=== PATIENT | female | born 1950 | race Caucasian/White ===

== ENCOUNTER → 2023-07-31 10:52 | Outpatient (REF) | payer MEDICARE, BC, SELFPAY | LOC: RAD 10:52 | PROVIDERS: ATTENDING PHYSICIAN Emergency Medicine; FAMILY PHYSICIAN Internal Medicine | DX: S93.491A Sprain of other ligament of right ankle, initial encounter (principal) | CPT/HCPCS: 73610 ==

== ENCOUNTER 2023-08-25 09:26 | Emergency (ER) | payer MEDICARE, BC, SELFPAY ==
[2023-08-25 09:28] VITALS: BP 136/105
--- NOTE | 2023-08-25 10:51 | ED.GENMED ---
History of Present Illness
General
Chief Complaint: Skin Surface Trauma
Source: patient
Time Seen by Provider: 08/25/23 10:17
Travel History
Have you had any contact with someone who has COVID-19?: No
Do you have any symptoms of coronavirus? Fever > 100 degrees, chills, cough, shortness of breath, sore throat, loss of taste or smell, muscle aches, or headache?: No
History of Present Illness
History of Present Illness:
73-year-old female with past medical history of migraines, hyperlipidemia, GERD presenting the emergency department for evaluation after she excellently cut her left knee while taking out the garbage. Patient states she is ultimately not sure as to
what may have cut her but believes it may have been a broken piece of glass. Laceration measured approximately 2 cm in size, just proximal to the patella, bleeding controlled with bandages. No other injuries were sustained. Patient is ultimately
unsure on her tetanus status.
Past History
Past History
ED Past Medical History: GERD, Hypercholesterolemia and Other (Migraines)
ED Past Surgical History: Appendectomy, Orthopedic and Tonsilectomy
Social History
Tobacco: Non-smoker
Alcohol: None
Drug: None
Personal:
Living: with family
Employment: Employed
Family History
Family History: Other (Noncontributory)
Review of Systems
Review of Systems
All Other Systems: ROS reviewed and negative except as documented in HPI and ROS
Phy Exam
Physical Exam
Physical Exam:
GENERAL: Alert , in no apparent distress
EYE: conjunctiva clear
Head: Normocephalic atraumatic
NECK: Supple,
ENT: mmm.
LUNGS: no acute respiratory distress
NEUROLOGICAL: Alert and oriented
SKIN: Warm and dry, 2 cm horizontally oriented laceration just proximal to the left patella. Bleeding well-controlled with bandages. Patient allows for full range of motion. No other injuries noted
MUSCULOSKELETAL: well perfused.
PSYCH: Normal and appropriate interaction.
Scores
Heart Failure Risk
Heart Failure Risk Score: Not Applicable
Heart Score for Chest Pain Patients
STEMI patient?: Not applicable
Withdrawal Assessment of Alcohol
Withdrawal Assessment Completed?: Not applicable
Course
Orders/Labs/Results
Orders:
Orders
08/25/23 10:50
Tetanus/Diphth/Acelpertussis [Adacel] 0.5 ml IM .ONCE ONE
Vital Signs
Initial and Last Documented VS:
Initial Vital Signs
Temp Pulse Resp BP Pulse Ox
98.6 F 70 18 136/105 98
08/25/23 09:28 08/25/23 09:28 08/25/23 09:28 08/25/23 09:28 08/25/23 09:28
Last Documented Vital Signs
Temp Pulse Resp BP Pulse Ox
98.6 F 70 18 136/105 98
08/25/23 09:28 08/25/23 09:28 08/25/23 09:28 08/25/23 09:28 08/25/23 09:28
Procedures
Laceration Closure
Left Anterior Knee:
Status of Wound: clean
Size of Wound in cm: 2
Description of Wound Edges: sharp
Preparation: cleaned with saline
Anesthesia: 1% Lidocaine
Revision/Debridement: routine- no revision
Type of Closure: single layer closure
Skin Closure Material: 4-0 nylon
Number of sutures: 6
MDM/Problems Addressed
MDM/Problems Addressed:
73-year-old female presenting emergency department following laceration to the left knee. Repaired as above without any complications and good hemostasis. Tetanus vaccine was updated. Patient had dressing placed over top. Suture removal 10 to 12
days. She will follow-up with primary care provider. Aware of return precautions and department.
*Pulse Oximetry
Patient hypoxic: no
*Critical Care Note
Total Time (30-74mins, 75-104mins- exclusive of procedures): Not Applicable
ED Attending Note
-
Portions of this chart may have been created with voice recognition software.� Occasional wrong word or��sound alike� substitutions may have occurred due to the inherent limitations of voice recognition software.
Discharge Plan
Departure
Patient Disposition: Home (Routine Discharge)
Date of Disposition: 08/25/23
Time of Disposition: 10:51
Patient with high blood pressure during this ER visit?: Yes
Discharge Problem:
Laceration of knee, left
Instructions: Laceration Repair With Stitches (DC)
Prescriptions:
No Action
atorvastatin 10 MG tablet
10 mg PO DAILY
loratadine 10 MG tablet
10 mg PO DAILYPRN PRN (Reason: allergies)
famotidine 20 MG tablet
20 mg PO BID
mupirocin 1 APPLIC ointment
1 applic intranasal BID Qty: 1 0RF
Patient Comments:
patient applied this am 01/13/19 . patient has been applying bid since 01/10/19 in the am
celecoxib 200 MG capsule
200 mg PO DAILY Qty: 30 3RF
Rx Instructions:
take with food
do not take within 2hours of asa-blocks absorption
sennosides [senna] 1 TABLET tablet
2 tab PO BID 0RF
acetaminophen 325 MG tablet
650 mg PO QID 0RF
magnesium hydroxide 30 ML suspension
30 ml PO DAILYPRN PRN (Reason: constipation) 0RF
aspirin 325 MG tablet,delayed release (DR/EC)
325 mg PO DAILY 0RF
Rx Instructions:
with food
docusate sodium 100 MG capsule
100 mg PO BID 0RF
oxycodone 5 MG tablet
5 mg PO Q4HPRN PRN (Reason: moderate-severe pain) Qty: 35 0RF
Rx Instructions:
1 tab moderate pain or 2 if pain severe
dx TKA
ongoing therapy
ondansetron HCl 4 MG tablet
4 mg PO Q6HPRN PRN (Reason: n/v) Qty: 1 0RF
Rx Instructions:
take 1/2 hour before oxycodone if recurrent nausea
Referrals:
Servando Mark MD [Family Provider] -
Activity Restrictions/Additional Instructions:
Suture removal in 10-12 days
Interventions
Interventions:
*Risk Screen - Suicide Last Done: 08/25/23 10:05
*General Assessment Last Done: 08/25/23 10:05
*Neglect/Abuse Screening Last Done: 08/25/23 10:05
*ED COVID-19 Vaccine History Last Done: 08/25/23 09:30
ED-Skin Assessment Last Done: 08/25/23 10:05
Discharge Date and Time
Print Language: NIGERIAN
[2023-08-25] MEDS: ADACEL 0.5 ML IM (10:58)
== END 2023-08-25 11:10 | disposition home or self-care (01) ==
LOC: EMR 09:26
PROVIDERS: EMERGENCY PHYSICIAN Emergency Medicine; FAMILY PHYSICIAN Internal Medicine
DX: S81.012A Laceration without foreign body, left knee, initial encounter (principal); W45.8XXA Other foreign body or object entering through skin, initial encounter; Z23 Encounter for immunization; K21.9 Gastro-esophageal reflux disease without esophagitis; E78.00 Pure hypercholesterolemia, unspecified; Z90.49 Acquired absence of other specified parts of digestive tract
CPT/HCPCS: 99282; 12001; 90471; 90715

== ENCOUNTER → 2023-08-28 07:43 | Outpatient (REF) | payer MEDICARE, BC, SELFPAY ==
[2023-08-28 10:21] LABS: % Basophils 0.5 % (0-2); % Immature Granulocytes 0.3 % (0-0.5); % Lymphocytes 22.2 % (20.5-51.1); % Monocytes 10.6 % (1.7-9.3); % Neutrophils 65.4 % (42.2-75.2); Absolute Eosinophils 0.1 10^3/uL (0-0.7); Absolute Lymphocytes 1.4 10^3/uL (1.2-3.4); Absolute Monocytes 0.7 10^3/uL (0.1-0.6); Absolute Neutrophils 4.1 10^3/uL (1.4-6.5); Hematocrit 39.6 % (37.0-47.0); Hemoglobin 13.4 g/dL (12.0-16.0); Mean Corp Hgb Conc. 33.8 g/dL (33.0-37.0); Mean Corpuscular Hgb 31.1 pg (27.0-31.0); Mean Corpuscular Volume 91.9 fL (81.0-99.0); Mean Platelet Volume 11.2 fL (7.4-10.4); Nucleated Red Blood Cells % 0 %; Platelet Count 275 10^3/uL (130-400); Red Blood Cell Count 4.31 10^6/uL (4.20-5.40); White Blood Cell Count 6.3 10^3/uL (4.8-10.8)
[2023-08-28 11:02] LABS: ALT (SGPT) 13 U/L (0-35); AST (SGOT) 19 U/L (14-36); Albumin 4.3 g/dl (3.5-5.0); Alkaline Phosphatase 72 U/L (38-126); Blood Urea Nitrogen 17 mg/dl (7-17); Calcium 9.8 mg/dl (8.4-10.2); Carbon Dioxide 28 mmol/L (22-30); Chloride 100 mmol/L (98-107); Glucose 99 mg/dl (70-99); HDL Cholesterol 97 mg/dl; LDL Cholesterol, Calculated 63 mg/dl; Potassium 4.5 mmol/L (3.5-5.1); Sodium 136 mmol/L (135-145); Total Bilirubin 0.5 mg/dl (0.2-1.3); Total Cholesterol 176 mg/dl (50-199); Total Protein 6.5 g/dl (6.3-8.2); Triglyceride 82 mg/dl (10-149); Very Low Density Lipoprotein 16 mg/dl (0-30); eGFR > 60.00
== END ==
LOC: HWWDC 07:43
PROVIDERS: ATTENDING PHYSICIAN Obstetrics & Gynecology Gynecology; FAMILY PHYSICIAN Physician Assistant
DX: Z12.31 Encounter for screening mammogram for malignant neoplasm of breast (principal); M25.511 Pain in right shoulder; G47.00 Insomnia, unspecified; F34.1 Dysthymic disorder; E66.3 Overweight
CPT/HCPCS: 36415; 77063; 77067; 80053; 80061; 84443; 85025

== ENCOUNTER → 2023-11-01 06:32 | Day surgery (SDC) | payer MEDICARE, BC, SELFPAY | LOC: GI 06:32 | PROVIDERS: ATTENDING PHYSICIAN Internal Medicine Gastroenterology | DX: Z12.11 Encounter for screening for malignant neoplasm of colon (principal); D12.0 Benign neoplasm of cecum; K57.30 Diverticulosis of large intestine without perforation or abscess without bleeding; K64.8 Other hemorrhoids | CPT/HCPCS: 45380; 88305 ==

== ENCOUNTER → 2024-03-16 09:02 | Outpatient (REF) | payer MEDICARE, BC, SELFPAY | LOC: MRI 3T 09:02 | PROVIDERS: ATTENDING PHYSICIAN Physician Assistant Surgical; FAMILY PHYSICIAN Physician Assistant | DX: S46.012A Strain of muscle(s) and tendon(s) of the rotator cuff of left shoulder, initial encounter (principal); M25.512 Pain in left shoulder | CPT/HCPCS: 73221 ==

== ENCOUNTER → 2024-11-29 12:48 | Outpatient (REF) | payer MEDICARE, BC, SELFPAY | LOC: MRI 3T 12:48 | PROVIDERS: ATTENDING PHYSICIAN Physician Assistant Surgical; FAMILY PHYSICIAN Physician Assistant | DX: M25.512 Pain in left shoulder (principal) | CPT/HCPCS: 73221 ==

== ENCOUNTER → 2024-12-09 08:00 | Outpatient (REF) | payer MEDICARE, BC, SELFPAY | LOC: HWRAD 08:00 | PROVIDERS: ATTENDING PHYSICIAN Physician Assistant Surgical; FAMILY PHYSICIAN Physician Assistant | DX: M12.812 Other specific arthropathies, not elsewhere classified, left shoulder (principal) | CPT/HCPCS: 73200 ==

== ENCOUNTER → 2024-12-18 06:42 | Outpatient (REF) | payer MEDICARE, BC, SELFPAY ==
[2024-12-18 08:21] LABS: Hematocrit 39.7 % (37.0-47.0); Hemoglobin 13.1 g/dL (12.0-16.0); Mean Corp Hgb Conc. 33.0 g/dL (33.0-37.0); Mean Corpuscular Volume 95.7 fL (81.0-99.0); Nucleated Red Blood Cells % 0 %; Platelet Count 237 10^3/uL (130-400); Red Cell Dist. Width 12.7 % (11.5-14.5)
[2024-12-18 09:04] LABS: Blood Urea Nitrogen 15 mg/dl (7-17); Calcium 9.3 mg/dl (8.4-10.2); Carbon Dioxide 27 mmol/L (22-30); Chloride 107 mmol/L (98-107); Glucose 98 mg/dl (70-99); Potassium 4.9 mmol/L (3.5-5.1); Sodium 139 mmol/L (135-145); eGFR > 60.00
== END ==
LOC: REG 06:42
PROVIDERS: ATTENDING PHYSICIAN Specialist; FAMILY PHYSICIAN Physician Assistant
DX: Z01.818 Encounter for other preprocedural examination (principal)
CPT/HCPCS: 36415; 80048; 85025

== ENCOUNTER 2025-01-03 15:28 | Inpatient (IN) | payer MEDICARE, BC, SELFPAY ==
[2025-01-03] VITALS (11 sets, daily range): BP systolic 59–137; BP diastolic 26–86; BMI 25.5; BMI 26.0
--- NOTE | 2025-01-03 12:07 | ED.GENMED ---
History of Present Illness
General
Chief Complaint: Fall
Source: patient and ambulance crew
Exam Limitations: none
Time Seen by Provider: 01/03/25 12:04
Nursing documentation reviewed up to this point in time: agreed with
History of Present Illness
History of Present Illness:
Note:
CHIEF COMPLAINT(S)
Numbness and pain in the left leg and decreased feeling in the foot.
HISTORY OF PRESENT ILLNESS
The patient is a 74-year-old female with a history of a knee replacement performed by Dr. Turpin. She reports experiencing significant numbness and pain in her left leg, particularly on the inside part, which has been present since she first fell
to the ground. She states, 'The inside part of the leg is what really hurts,' and describes it as almost like a burning sensation. She reports decreased movement in the foot and increased numbness, stating, 'I dont have a lot of feeling in my foot.'
The patients left shoulder is scheduled for a reverse total shoulder replacement by Dr. Santana on January 20 due to an attached and retracting rotator cuff. The right rotator cuff was repaired approximately four to five years ago.
PHYSICAL EXAM
General: Alert, cooperative, and oriented.
Skin: Warm, dry. abrasion forehead
Head: Normocephalic, atraumatic; bruises present on the head.
Neck: Supple, trachea midline. no cspine tenderness
Eye, Ears, Nose, Mouth, and Throat: Oral mucosa moist.
Cardiovascular: Normal peripheral perfusion, no edema.
Respiratory: Respirations are non-labored.
Gastrointestinal: Abdomen nondistended.
Back: Normal range of motion, normal alignment.
Musculoskeletal: Decreased sensation and movement in left foot. left knee swelling, deformity Right shoulder appears dislocated anterioly
Neurological: Alert and oriented to person, place, time, and situation; reports numbness and burning sensation in the left leg.
Psychiatric: Cooperative, appropriate mood and affect.
PROBLEM LIST
Acute Problems:
1. Numbness and pain in the left leg
2. Decreased sensation in the left foot
3. Right shoulder dislocation
PLAN
- A computed tomography (CT) scan of the head will be performed to assess for any related head injuries.
- Evaluate the left leg for possible displacement or other trauma-related injuries.
- Monitor symptoms and consider further neurological assessment for persistent numbness.
DIFFERENTIAL DIAGNOSIS
The Differential Diagnosis includes, in no particular order and is not limited to:
1. Peripheral neuropathy
2. Radiculopathy
3. Deep vein thrombosis (DVT)
4. Compartment syndrome
5. Fracture or bone injury of the leg
6. Ligament or tendon injury
7. Spinal stenosis
8. Hematoma or contusion
9. Post-surgical complications
10. Vascular insufficiency
CARE-UPDATE
01/03/25 - 12:21
Patient exhibits difficulty finding pulses in the left foot; TT angiography of the left lower leg is ordered for further evaluation. Vascular surgery will review the imaging results to determine the next steps.
CARE-UPDATE
01/03/25 - 14:19
CT angiography and x-ray confirm right shoulder dislocation and papal artery injury. Consulted with Dr. Muniz; plan to reduce joints in OR. Anticipated vascular repair to be performed by [facility] surgery, including a likely femoral bypass.
Disposition:
SUMMARY OF ENCOUNTER
The patient, a 74-year-old female, was evaluated in the emergency department due to numbness and pain in her left leg, decreased feeling in the foot, and a confirmed right shoulder dislocation following a fall. She also has a history of left knee
replacement. The evaluation included a CT angiography and X-ray, which confirmed the right shoulder dislocation and a potential popliteal artery injury.
The patient exhibits difficulty finding pulses in the left foot. TT angiography of the left lower leg was ordered for further evaluation, and a vascular surgery consultation was initiated to review imaging results and determine the appropriate
intervention.
DISPOSITION
Admit to operating room for femoral-popliteal bypass and repair of shoulder and knee dislocations.
MANAGEMENT OF THE PATIENTS CARE WAS DISCUSSED WITH
Consultation with Dr. Muniz and vascular surgery was conducted to plan the reduction of the joints in the OR and anticipated vascular repair, including likely femoral bypass.
PLAN
Admit to the operating room for femoral-popliteal bypass surgery and repair of shoulder and knee dislocations to address vascular and orthopedic issues.
INDEPENDENT REVIEW OF LABS AND INTERPRETATION OF TESTS
- My independent interpretation of CT angiography indicates a popliteal artery injury, necessitating vascular repair.
- My independent review of X-ray confirms a right shoulder dislocation.
MEDICAL DECISION MAKING
- Number and Complexity of Problems Addressed: Chronic conditions affecting care include a history of left knee replacement, right rotator cuff repair, and current acute issues with left leg numbness and right shoulder dislocation. Differential
diagnosis includes peripheral neuropathy, radiculopathy, DVT, compartment syndrome, fracture or bone injury of the leg, ligament or tendon injury, spinal stenosis, hematoma or contusion, post-surgical complications, and vascular insufficiency.
- Data:
Category 1: The decision to order CT angiography and X-ray to assess for vascular injury and confirmation of shoulder dislocation.
Category 3: Discussed management and surgical planning with Dr. Muniz and vascular surgery team.
-Risk:
Procedures with associated risks include planned femoral-popliteal bypass surgery and the surgical reduction of dislocated joints. These interventions are necessary following the imaging findings of potential vascular compromise and confirmed
dislocation.
DIAGNOSIS
1. Right shoulder dislocation (ICD-10: S43.004A)
2. Popliteal artery injury (ICD-10: S75.02XA)
3. Numbness and pain in the left leg (ICD-10: R52.10)
4. History of left knee replacement (ICD-10: Z96.651)
5. left knee dislocation
Past History
Past History
ED Past Medical History: GERD, Hypercholesterolemia and Other (Migraines)
ED Past Surgical History: Appendectomy, Orthopedic and Tonsilectomy
Social History
Tobacco: Non-smoker
Alcohol: None
Drug: None
Personal:
Living: with family
Employment: Employed
Family History
Family History: Other (Noncontributory)
Phy Exam
Physical Exam
Physical Exam:
.
Course
Orders/Labs/Results
Orders:
Orders
01/03/25 12:04
CT Angio Lower Ext W/Wo Iv Contrast [CT Lower Ext Angio W/wo Iv Con] Urgent
Comment: do not wait for labs
Reason For Exam: left knee possible dislocation, weak pulse
CT Head W/o Iv Contrast Urgent
Comment:
Reason For Exam: fall, hit head
Cardiac Monitoring- Treatment ONCE
Knee, Left 4 or More Views [CR Knee - Left 4 Or More View*] Urgent
Comment:
Reason For Exam: fall, left knee pain
Pelvis, 1 or 2 Views CR [CR Pelvis - 1 Or 2 Views ] Urgent
Comment:
Reason For Exam: fall
Shoulder, Right 2 Views [CR Shoulder - Right Min 2 View] Urgent
Comment:
Reason For Exam: right shoulder dislocation
01/03/25 12:13
HYDROmorphone [Dilaudid] 1 mg IV NOW STA
Ondansetron Injectable [Zofran] 4 mg IV NOW STA
01/03/25 13:30
Type+Screen Urgent
Complete Blood Count/With Diff Urgent
Comprehensive Metabolic Panel Urgent
Heparin 5,900 units IV NOW STA
Heparin 32524 Units/250 ml 25,000 units in 250 ml IV PER PROTOCOL
Weight to be used for heparin protocol in kilograms (kg):: 73.7
Protocol:: Vascular Surgery
PTT Goal Range to be used:: PTT 73 to 111 seconds
Order type:: Initial
INITIAL Infusion Dose (UNITS/KG/hr) & then follow protocol:: 18 units/kg/hr
Infusion Dose in UNITS/hr & then follow protocol (UNITS/hr):: 1,300
INFUSION RATE in mL/hr & then follow protocol (mL/hr):: 13
PTT less than or equal to 64 seconds:: Notify Ordering Provider. obtain orders for rate increase &
possible bolus
PTT 64.1 to 72.9 seconds:: Increase rate by 100 units/hr (+ 1 mL/hr)
PTT 73 to 111 seconds:: Target Range. No change in rate.
PTT 111.1 to 130.9 seconds:: Decrease rate by 100 units/hr (- 1 mL/hr)
PTT 131 to 199.9 seconds:: HOLD for 1 hour. Then decrease rate by 200 units/hr (- 2 mL/hr)
PTT greater than or equal to 200 seconds:: STOP INFUSION. Notify Ordering provider to obtain further orders.
Lab follow-up:: Each change, PTT q6h until 2 consecutive are therapeutic. Then PTT
daily.
Pharmacy Request to Place See Dose Instructions PO NOW STA
Discontinue all Active Warfarin orders?: Yes
01/03/25 13:[address] Non Medication Order As Directed
Physician Order: PTT 6 hours after initial start of Heparin infusion
01/03/25 13:38
Lidocaine 2% Mpf [Xylocaine Mpf 2%] 100 mg .ROUTE .STK-MED ONE
Ondansetron Injectable [Zofran] 4 mg .ROUTE .STK-MED ONE
Propofol [Diprivan] 20 ml .ROUTE .STK-MED
Rocuronium [place] [Rocuronium] 50 mg .ROUTE .STK-MED ONE
01/03/25 13:39
Fentanyl Citrate/Pf [Sublimaze] 100 mcg .ROUTE .STK-MED ONE
Midazolam HCl [Versed] 2 mg .ROUTE .STK-MED ONE
01/03/25 13:53
Heparin 5,000 units .ROUTE .STK-MED ONE
01/03/25 13:54
Fentanyl Citrate/Pf [Sublimaze] 25 mcg IV [id number] PRN
HYDROmorphone [Dilaudid] 0.25 mg IV PACU-Q5MPRN PRN
HYDROmorphone [Dilaudid] 0.5 mg IV PACU-Q5MPRN PRN
Ondansetron Injectable [Zofran] 4 mg IV PACU-ONCEPRN PRN
Prochlorperazine [Compazine] 5 mg IV PACU-ONCEPRN PRN
Thrombin Topical (Bovine) [Thrombin-Jmi 73824 Unit Vial] 20,000 units .ROUTE .STK-MED ONE
Notify MD As Directed
Notify physician if: for SDS patients with known or suspected sleep obstructive sleep apnea, monitor in the
PACU.
Notify MD for any apneic/desaturation episodes
O2 Therapy [RESP] Urgent
Titrate/Wean O2 to maintain O2 sat greater than (%): 92
Special Instructions: -Provide supplemental oxygen to achieve O2 sat of 92% or greater.
-After 15 min, may wean O2 and discontinue if patient is able to maintain O2 sat of 92%
or greater during recovery period.
If patient is a discharge home, without oxygen therapy, notify anestheiologist if
unable to maintain O2 SAT of 92% or greater on room air for MD clearance.
01/03/25 14:00
Normosol (Mult Electrolytes) [Normosol-R/Plasmalyte-A] 1,000 ml IV PER PROTOCOL
Pharmacy Request to Place See Dose Instructions IV DIRECTED
01/03/25 14:02
PTT Urgent
Comment: Obtain baseline before beginning heparin infusion if not already collected
01/03/25 14:03
Admit/Transfer Patient As Directed
Co-Sign Provider:
Level of Care: Inpatient admission
Assign to:: Telemetry
Physician / Group: [email or web address]
Diagnosis: dislocation of left knee/popliteal artery occlusion/dissection
Reason for Telemetry: Arrhythmia
Date to Stop Telemetry: 01/06/25
Time to Stop Telemetry: 11:00
Reason for Hospitalization: dislocation of left knee/popliteal artery occlusion/dissection
Expected length of stay greater than two midnights?: Yes
ELOS- Estimated Length of Stay in days: 2
I certify the patient meets the requirements for IP care: Yes
01/03/25 14:04
Code Status As Directed
Resuscitation Status: Full Code
Phenylephrine [Francisco-Synephrine] 10 mg .ROUTE .STK-MED ONE
PRN Pain Medication Management As Directed
May give lesser potent ordered pain med per pt: Yes
preference::
Protocol:: Medication orders for pain may be administered in a
manner that supports deferring to patient preference
when the pt is:
- Requesting an ordered lesser potent pain medication.
Least to most potent pain medications are defined
as: acetaminophen < NSAID < tramadol < opioids
(morphine, oxycodone, hydromorphone).
- Requesting a lesser dose of the same medication IF
ORDERED.
- Requesting a less intrusive route of administration
if both routes are prescribed by the provider (PO <
IV).
01/03/25 14:06
Ondansetron Injectable [Zofran] 4 mg IV NOW STA
01/03/25 14:08
Ondansetron Injectable [Zofran] 4 mg IV NOW STA
01/03/25 14:13
ABO [Blood Group&Type] Stat
01/06/25 11:00
DC Protocol for Telemetry ONCE
Abnormal Lab Results
01/03/25
13:30
WBC 18.6 H 10^3/uL
(4.8-10.8)
RBC 4.17 L 10^6/uL
(4.20-5.40)
MPV 10.8 H fL
(7.4-10.4)
Abs Immat Gran (auto) 0.1 H 10^3/uL
(0-0.05)
Absolute Neuts (auto) 15.2 H 10^3/uL
(1.4-6.5)
Absolute Monos (auto) 1.4 H 10^3/uL
(0.1-0.6)
Neutrophils % 81.7 H %
(42.2-75.2)
Lymphocytes % 9.8 L %
(20.5-51.1)
01/03/25 13:30
Vital Signs
Initial and Last Documented VS:
Initial Vital Signs
Temp Pulse Resp Pulse Ox
97.7 F 67 15 99
01/03/25 11:52 01/03/25 11:52 01/03/25 11:52 01/03/25 11:52
Last Documented Vital Signs
Temp Pulse Resp BP Pulse Ox
97.7 F 64 18 119/66 99
01/03/25 11:52 01/03/25 12:01 01/03/25 12:01 01/03/25 12:01 01/03/25 12:08
*Pulse Oximetry
SaO2: 99
Oxygen Mode of Delivery: Room air
Patient hypoxic: no
*Critical Care Note
Total Time (30-74mins, 75-104mins- exclusive of procedures): 35
comment:
Critical care statement: A total of 35 minutes of critical care time was provided for this patient. This includes management of unstable vital signs, evaluation of the patient at bedside, reviewing the patient's pertinent medical records, discussion
with consultants, review of old EKGs and review of pertinent medical records. This time with separate from time utilized to perform the aforementioned documented procedures
ED Attending Note
-
Portions of this chart may have been created with voice recognition software.� Occasional wrong word or��sound alike� substitutions may have occurred due to the inherent limitations of voice recognition software.
Discharge Plan
Departure
Patient Disposition: OR
Date of Disposition: 01/03/25
Time of Disposition: 13:32
Admit to: OR
Presentation/result/management discussed w/ accepting MD/DO: Hospitalist
Patient with high blood pressure during this ER visit?: No
Condition: Serious
Discharge Problem:
Closed dislocation of left knee, Dissection of left popliteal artery, Anterior dislocation of right shoulder, Abrasion of forehead
Prescriptions:
No Action
atorvastatin 10 MG tablet
10 mg PO DAILY
loratadine 10 MG tablet
10 mg PO DAILYPRN PRN (Reason: allergies)
famotidine 20 MG tablet
20 mg PO BID
mupirocin 1 APPLIC ointment
1 applic intranasal BID Qty: 1 0RF
Patient Comments:
patient applied this am 01/13/19 . patient has been applying bid since 01/10/19 in the am
celecoxib 200 MG capsule
200 mg PO DAILY Qty: 30 3RF
Rx Instructions:
take with food
do not take within 2hours of asa-blocks absorption
sennosides [senna] 1 TABLET tablet
2 tab PO BID 0RF
acetaminophen 325 MG tablet
650 mg PO QID 0RF
magnesium hydroxide 30 ML suspension
30 ml PO DAILYPRN PRN (Reason: constipation) 0RF
aspirin 325 MG tablet,delayed release (DR/EC)
325 mg PO DAILY 0RF
Rx Instructions:
with food
docusate sodium 100 MG capsule
100 mg PO BID 0RF
oxycodone 5 MG tablet
5 mg PO Q4HPRN PRN (Reason: moderate-severe pain) Qty: 35 0RF
Rx Instructions:
1 tab moderate pain or 2 if pain severe
dx TKA
ongoing therapy
ondansetron HCl 4 MG tablet
4 mg PO Q6HPRN PRN (Reason: n/v) Qty: 1 0RF
Rx Instructions:
take 1/2 hour before oxycodone if recurrent nausea
Referrals:
Krystle Jacob PA-C [Family Provider, Internal Medicine]
Interventions
Interventions:
*Risk Screen - Suicide Last Done: 01/03/25 12:03
*General Assessment Last Done: 01/03/25 12:03
*Neglect/Abuse Screening Last Done: 01/03/25 12:03
*ED COVID-19 Vaccine History Last Done: 01/03/25 12:07
ED- Neurological Assessment Last Done: 01/03/25 12:07
Discharge Date and Time
Print Language: GEORGIAN
[2025-01-03] MEDS: ZOFRAN 4 MG IV ×2 (12:16→14:08)
[2025-01-03] MEDS: DILAUDID 1 MG IV (12:16)
[2025-01-03 13:50] LABS: Hematocrit 37.4 % (37.0-47.0); Hemoglobin 12.9 g/dL (12.0-16.0); Mean Corp Hgb Conc. 34.5 g/dL (33.0-37.0); Mean Corpuscular Volume 89.7 fL (81.0-99.0); Nucleated Red Blood Cells % 0 %; Platelet Count 235 10^3/uL (130-400); Red Cell Dist. Width 12.4 % (11.5-14.5)
--- NOTE | 2025-01-03 14:08 | HPS.HSE ---
Family Physician
-
Family Physician: Krystle Jacob
Chief Complaint
-
fall
History of Present Illness
74-year-old female past medical history of osteoarthritis, presenting with fall today while she was outside. She states that her leg gave out and her left knee twisted and she fell on the ground hitting her head. She has a laceration on her
forehead. She has severe pain in her right shoulder. She has severe pain in her left knee.
She has nausea without vomiting.
Denies smoking or alcohol use.
Medical History
Past Medical History
Past Medical History: Reports Other (osteoarthritis,)
Past Surgical History: Reports Other (Appendectomy, Orthopedic and Tonsilectomy, right rotator cuff surgery, Achilles tendon surgery,)
Social History
Tobacco: Non-smoker
Alcohol: None
Drug: None
Family History
Family History: Not pertinent
Allergies / Home Medications
Allergies reflects when Allergies were last updated in [facility].
Home Medications with original date entered in [facility]
Allergy/Medication List:
Allergies
Allergy/AdvReac Type Severity Reaction Status Date / Time
Penicillins Allergy Anaphylaxis Verified 08/25/23 09:32
tetracycline Allergy itching Verified 08/25/23 09:32
and rash
seasonal Allergy stuffy nose Uncoded 08/25/23 09:32
Home Medications
atorvastatin 10 mg tablet 10 mg PO DAILY 10/12/14
loratadine 10 mg tablet 10 mg PO DAILYPRN PRN allergies 10/12/14
famotidine 20 mg tablet 20 mg PO BID 12/17/18
mupirocin 2 % topical ointment 1 applic intranasal BID #1 tube 01/02/19
acetaminophen 325 mg tablet 650 mg (2 x 325 mg) PO QID 01/14/19
aspirin 325 mg tablet,delayed release 325 mg PO DAILY 01/14/19
celecoxib 200 mg capsule 200 mg PO DAILY #30 caps 01/14/19
docusate sodium 100 mg capsule 100 mg PO BID 01/14/19
magnesium hydroxide 400 mg/5 mL oral suspension 30 ml PO DAILYPRN PRN constipation 01/14/19
ondansetron HCl 4 mg tablet 4 mg PO Q6HPRN PRN n/v #1 tab 01/14/19
oxycodone 5 mg tablet 5 mg PO Q4HPRN PRN moderate-severe pain #35 tabs 01/14/19
sennosides 8.6 mg tablet (senna) 2 tab PO BID 01/14/19
Review of Systems
-
History Source: Patient
A 12 point ROS was completed and negative except as noted: Yes
Constitutional: Reports No Symptoms
EENT: Reports No Symptoms
Respiratory: Reports No Symptoms
Cardiac: Reports No Symptoms
Abdomen/GI: Reports No Symptoms
: Reports No Symptoms
Musculoskeletal: Reports See HPI
Skin: Reports No Symptoms
Neurological: Reports No Symptoms
Endocrine: Reports No Symptoms
Hematologic/Lymphatic: Reports No Symptoms
Psych: Reports No Symptoms
Physical Exam
Vital Signs
Vital Signs
Temp Pulse Resp BP Pulse Ox
97.7 F 64 18 119/66 99
01/03/25 11:52 01/03/25 12:01 01/03/25 12:01 01/03/25 12:01 01/03/25 12:08
Physical Exam
General: Well Developed, Well Nourished and No Apparent Distress
HEENT: NormoCephalic, Moist mucous membranes and Atraumatic
Respiratory: Clear
Cardiac: S1/S2 and Regular Rhythm; No Murmur or Rub
GI: Soft, Non Tender, Non Distended and Normal Bowel Sounds; No Organomegaly
Rectal: Deferred by Provider
Musculoskeletal: No Clubbing, No Cyanosis and No Edema
Skin: No Rash
Neuro: Nonfocal/grossly intact
Laboratory Results
-
01/03/25 13:30
Data Reviewed
-
Lab Data: Labs Reviewed by me
Old Records: Reviewed
Impression/Plan
-
IMPRESSION:
PLAN:
# Dislocation of left total knee arthroplasty with complete occlusion of the popliteal artery with distal reconstitution/dissection
# Amatory dysfunction with mechanical fall
-As per CT angiogram of left lower extremity
-Heparin drip started
-Continue aspirin, statin
- Vascular to take to OR for possible bypass
- Ortho to reduce knee in OR
- Zofran, Dilaudid
- N.p.o.
- Pelvic x-ray negative
# Right shoulder anterior dislocation
- Ortho to reduce in OR
# Forehead laceration
- CT head shows no acute abnormality
History of right rotator cuff injury status post surgery in 2019
History of left rotator cuff injury managed conservatively
- Plan for shoulder replacement in the near future
Osteoarthritis
GERD
Hypercholesteremia
Migraine
Anxiety/depression
Full code
DVT prophylaxis�heparin drip
N.p.o.
[2025-01-03 14:18] LABS: ALT (SGPT) 19 U/L (0-35); AST (SGOT) 23 U/L (14-36); Albumin 4.2 g/dl (3.5-5.0); Alkaline Phosphatase 66 U/L (38-126); Blood Urea Nitrogen 16 mg/dl (7-17); Calcium 10.1 mg/dl (8.4-10.2); Carbon Dioxide 20 mmol/L (22-30); Chloride 106 mmol/L (98-107); Estimated Creatinine Clearance 82 ml/min; Glucose 150 mg/dl (70-99); Potassium 4.1 mmol/L (3.5-5.1); Sodium 134 mmol/L (135-145); Total Protein 6.0 g/dl (6.3-8.2); eGFR > 60.00
--- NOTE | 2025-01-03 14:32 | CON.VAS ---
Medical History
-
Chief Complaint: Numbness to LLE s/p Fall
History of Present Illness:
74F mechanical fall from standing p/w R arm disclocation and LLE pulseless cool leg with numbness. CTA shows posterior knee dislocation with no flow through popliteal artery behind the knee. Distal reconstitution present on delayed phase imaging.
Past Medical History
Past Medical History: Hypercholesterolemia
Past Surgical History: Appendectomy and Other (bilateral knee replacement )
Social History
Tobacco: Non-Smoker
Family History
Family History: Reviewed & Not Pertinent
Allergies / Home Medications
Allergy/AdvReac Type Severity Reaction Status Date / Time
Penicillins Allergy Anaphylaxis Verified 08/25/23 09:32
tetracycline Allergy itching Verified 08/25/23 09:32
and rash
seasonal Allergy stuffy nose Uncoded 08/25/23 09:32
�Medication �Instructions �Recorded �Confirmed �Type
atorvastatin 10 mg tablet 10 mg PO DAILY 10/12/14 01/13/19 History
loratadine 10 mg tablet 10 mg PO DAILYPRN PRN allergies 10/12/14 01/13/19 History
famotidine 20 mg tablet 20 mg PO BID 12/17/18 01/13/19 History
mupirocin 2 % topical ointment 1 applic intranasal BID #1 tube 01/02/19 Rx
acetaminophen 325 mg tablet 650 mg (2 x 325 mg) PO QID 01/14/19 Rx
aspirin 325 mg tablet,delayed 325 mg PO DAILY 01/14/19 Rx
release
celecoxib 200 mg capsule 200 mg PO DAILY #30 caps 01/14/19 Rx
docusate sodium 100 mg capsule 100 mg PO BID 01/14/19 Rx
magnesium hydroxide 400 mg/5 mL 30 ml PO DAILYPRN PRN constipation 01/14/19 Rx
oral suspension
ondansetron HCl 4 mg tablet 4 mg PO Q6HPRN PRN n/v #1 tab 01/14/19 Rx
oxycodone 5 mg tablet 5 mg PO Q4HPRN PRN moderate-severe 01/14/19 Rx
pain #35 tabs
sennosides 8.6 mg tablet (senna) 2 tab PO BID 01/14/19 Rx
Physical Exam
Vital Signs
Temp Pulse Resp BP Pulse Ox
97.7 F 64 18 119/66 99
01/03/25 11:52 01/03/25 12:01 01/03/25 12:01 01/03/25 12:01 01/03/25 12:08
Lab Results
01/03/25 13:30
01/03/25 13:30
Physical Exam
General: Well Developed, Well Nourished and No Apparent Distress
HEENT: Normocephalic
Respiratory: Clear
Cardiac: S1/S2
GI: Soft
Skin: Warm
Neuro: Awake and AO x 3
Psych: Calm
Pulses: Bilateral Femoral: +2, Left Dorsalis Pedis: Doppler (absent), Right Dorsalis Pedis: +2, Left Posterior Tibial: Doppler (absent ) and Right Posterior Tibial: +2
Assessment / Plan
-
74F p/w LLE posterior knee dislocation and cool pulseless leg. CTA shows possible pop intimal injury
-proceed to OR for reduction of knee dislocation
-may need LLE bypass if pulse does not return after reduction
--- NOTE | 2025-01-03 15:14 | W.PN.UPDATE ---
Update Note
Progress Note Update
Patient seen at bedside in vascular suite. Full consult note to follow. Patient with pulseless left limb, left knee dislocation and right shoulder dislocation. Risks, benefits, alternatives, recovery process and potential complications of closed
reduction right shoulder and left knee were discussed in detail. Patient verbalized understanding and surgical and blood consents signed.
--- NOTE | 2025-01-03 18:12 | CON.ORTHO ---
Consultation
-
Date/Time Consultation Requested: 01/03/2025; time unknown
Date/Time Consultation Performed: 01/03/2025
Requesting Provider: unknown
Performing Provider: Kristi Pulido PA-C / Dr. Santosh Muniz
Reason for Consultation: Right shoulder dislocation, Left knee dislocation
Consultation - Orthopedics
History
Ms. Summers is a 74 year old female with PMH of osteoarthritis, bilateral TKA seen today for her right shoulder and left knee. She was walking in the parking lot at the store when her leg gave out on her. This resulted in her falling, and she reports
her left knee twisted. She did hit her head during the fall. Upon presentation, she complained of severe left knee and right shoulder pain. Imaging revealed dislocations of both of these joints.
Allergies / Home Medications
Allergy/AdvReac Type Severity Reaction Status Date / Time
Penicillins Allergy Anaphylaxis Verified 08/25/23 09:32
tetracycline Allergy itching Verified 08/25/23 09:32
and rash
seasonal Allergy stuffy nose Uncoded 08/25/23 09:32
�Medication �Instructions �Recorded
atorvastatin 10 mg tablet 10 mg PO DAILY 10/12/14
loratadine 10 mg tablet 10 mg PO DAILYPRN PRN allergies 10/12/14
famotidine 20 mg tablet 20 mg PO BID 12/17/18
mupirocin 2 % topical ointment 1 applic intranasal BID #1 tube 01/02/19
acetaminophen 325 mg tablet 650 mg (2 x 325 mg) PO QID 01/14/19
aspirin 325 mg tablet,delayed 325 mg PO DAILY 01/14/19
release
celecoxib 200 mg capsule 200 mg PO DAILY #30 caps 01/14/19
docusate sodium 100 mg capsule 100 mg PO BID 01/14/19
magnesium hydroxide 400 mg/5 mL 30 ml PO DAILYPRN PRN constipation 01/14/19
oral suspension
ondansetron HCl 4 mg tablet 4 mg PO Q6HPRN PRN n/v #1 tab 01/14/19
oxycodone 5 mg tablet 5 mg PO Q4HPRN PRN moderate-severe 01/14/19
pain #35 tabs
sennosides 8.6 mg tablet (senna) 2 tab PO BID 01/14/19
Vital Signs / Lab Results
Temp Pulse Resp BP Pulse Ox
97.7 F 65 18 116/81 98
01/03/25 11:52 01/03/25 14:00 01/03/25 14:00 01/03/25 14:00 01/03/25 14:00
01/03/25 13:30
01/03/25 13:30
XR Left Knee FINDINGS:
There is a left total knee arthroplasty. There is dislocation of the arthroplasty with posterior subluxation of the femoral component relative to the tibial component. There is a cortical irregularity along the distal femur just proximal to the
arthroplasty consistent with a nondisplaced fracture. Large joint effusion present. Ossifications are present along the medial soft tissues which appear new from prior radiographs. There is prominent soft tissue swelling.
XR Right Shuolder IMPRESSION:
Anterior dislocation of the right shoulder.
There are irregularities of the posterior and inferior glenoid suspicious for glenoid fracture.
Patient was examined at the bedside in vascular suite. Her right shoulder was abducted and externally rotated. She was unable to move the shoulder. Tenderness about the area. NVID. Her left knee revealed deformity about the knee. Tenderness
generally about the anterior knee. Pulseless LLE.
Assessment / Plan
Right shoulder dislocation, Left knee dislocation
--Unfortunately, Yvette sustained dislocations of both her right shoulder and left knee in her fall. Upon presentation to the ED she was found to have no pulses in her LLE. She was brought to vascular suite and ortho was consulted for assistance
with reduction. We discussed the risks, benefits, alternatives, recovery process and potential complications of closed reduction of her right shoulder and left knee. This will be performed under the direction of Dr. Muniz. She verbalized
understanding and agrees to proceed. Surgical and blood consent signed and on patient chart. Orthopedics will continue to follow along.
[2025-01-03 18:17] LABS: B.E. - POC -3.9 mmol/L; Glucose - POC 151 mg/dl (70-99); HCO3 - POC 22 mmol/L (21-28); Hematocrit - POC 29 % PCV (37-47); Hemodilution- POC Yes; Hemoglobin Calculated - POC 9.8; Ionized Calcium - POC 1.13 mmol/L (1.15-1.33); Lactate - POC 1.14 mmol/L (0.36-0.75); O2 Saturation %Calculated-POC 99.6 % (94-98); PCO2 - POC 42 mmHg (35-48); PO2 - POC 190 mmHg (83-108); Potassium - POC 4.0 mmol/L (3.5-5.1); Sodium - POC 140 mmol/L (136-145); Specimen Type - POC Arterial; pH - POC 7.33 (7.35-7.45)
[2025-01-03] MEDS: DILAUDID 0.5 MG IV ×2 (19:32→21:35)
[2025-01-03] MEDS: LEVOPHED 250 IV (19:55)
--- NOTE | 2025-01-03 20:27 | W.PN.UPDATE ---
Update Note
Progress Note Update
In the operating room patient underwent reduction of her right shoulder and left knee by orthopedics. She also underwent above-knee popliteal to below-knee popliteal bypass and thrombectomy and ligation of popliteal vein. There was significant
amount of venous bleeding and muscle bleeding. Patient received 2 units of PRBC 1 FFP. Heparin drip turned off. Neurovascular checks every hour and left lower extremity. Recheck hemoglobin now and every 6 hours.
[2025-01-03 20:58] LABS: Glucose - Point of Care 154 mg/dl (70-99)
--- NOTE | 2025-01-03 21:30 | PTCARENOTE ---
Retrieved pt from PACU postop. Bedside report w GRAIN INSPECTOR performed and assisted w transport to ICU. Tandem neurovascular check performed. Pt is AAO3. LLE in immobilizer with postop dressing beneath. See flowsheet for full details.R arm in sling. Pt
reports numbness on L plantar foot and R arm/hand, slowly improving post procedure. Shallow respirations, lung sounds are clear and drecreased throughout, pox 100% on 2L O2 nasal cannula. Telemetry rhythm reveals SR, HR 70's, edema noted at L ankle,
palpable peripheral pulses present. HypoBS, abdomen soft round nontender, NPO status maintained. Thermistor Sandoval catheter in place draining yellow urine without difficulty. Abrasion noted to pt's nose, laceration to pt's forehead with dressing in
place. L FA and L AC int's flushed and patent, PACU IVF infusing upon arrival to ICU and Levophed at 4 mcg/min to maintain MAP > 65mmHg. Pt's daughter and niece arrived to bedside. Safe environment maintained, call jackson within reach. Will monitor
closely.
[2025-01-03] MEDS: NSS 1000 IV (21:44)
[2025-01-03 21:46] LABS: Hematocrit 28.6 % (37.0-47.0); Hemoglobin 10.1 g/dL (12.0-16.0); Mean Corp Hgb Conc. 35.3 g/dL (33.0-37.0); Mean Corpuscular Volume 88.8 fL (81.0-99.0); Platelet Count 153 10^3/uL (130-400); Red Cell Dist. Width 12.7 % (11.5-14.5)
[2025-01-03 21:53] LABS: INR 1.18; PT 15.3 Sec (11.4-14.6)
[2025-01-03 21:54] LABS: APTT 25.5 Sec (23.4-35.0)
[2025-01-03 21:58] LABS: Blood Urea Nitrogen 16 mg/dl (7-17); Calcium 8.4 mg/dl (8.4-10.2); Carbon Dioxide 21 mmol/L (22-30); Chloride 110 mmol/L (98-107); Estimated Creatinine Clearance 82 ml/min; Glucose 159 mg/dl (70-99); Magnesium 2.0 mg/dl (1.6-2.3); Potassium 4.7 mmol/L (3.5-5.1); Sodium 134 mmol/L (135-145); eGFR > 60.00
[2025-01-04] VITALS (28 sets, daily range): BP systolic 56–127; BP diastolic 27–95; BMI 26.0
[2025-01-04] MEDS: FLUSH (NSS) 2 FLUSH IV (01:07)
[2025-01-04] MEDS: DILAUDID 0.5 MG IV ×2 (01:07→04:09)
--- NOTE | 2025-01-04 02:28 | PTCARENOTE ---
Continuing Q1H neurovascular checks. Pt reports more sensation in L plantar foot and in RUE.
Attempted to taper Levophed at 2300, titrated back up ~0115 to maintain MAP >65mmHg.
Pt states good pain relief from PRN pain medication.
Pt declined repositioning in bed at this time.
Will continue to monitor closely.
[2025-01-04 03:11] LABS: Hematocrit 28.0 % (37.0-47.0); Hemoglobin 9.7 g/dL (12.0-16.0)
[2025-01-04] MEDS: FLUSH (NSS) 1 FLUSH IV (04:04)
[2025-01-04 04:39] LABS: Hematocrit 27.4 % (37.0-47.0); Hemoglobin 9.4 g/dL (12.0-16.0); Mean Corp Hgb Conc. 34.3 g/dL (33.0-37.0); Mean Corpuscular Volume 91.9 fL (81.0-99.0); Nucleated Red Blood Cells % 0 %; Platelet Count 151 10^3/uL (130-400); Red Cell Dist. Width 13.1 % (11.5-14.5)
[2025-01-04 04:52] LABS: ALT (SGPT) 128 U/L (0-35); AST (SGOT) 182 U/L (14-36); Albumin 3.0 g/dl (3.5-5.0); Alkaline Phosphatase 40 U/L (38-126); Blood Urea Nitrogen 18 mg/dl (7-17); Calcium 8.3 mg/dl (8.4-10.2); Carbon Dioxide 23 mmol/L (22-30); Chloride 111 mmol/L (98-107); Estimated Creatinine Clearance 68 ml/min; Glucose 130 mg/dl (70-99); Potassium 4.6 mmol/L (3.5-5.1); Sodium 136 mmol/L (135-145); Total Protein 4.7 g/dl (6.3-8.2); eGFR > 60.00
[2025-01-04] MEDS: LEVOPHED 250 IV (05:30)
--- NOTE | 2025-01-04 07:10 | PTCARENOTE ---
Handoff pulse/neurovascular checks of her L/E's. Left PT weak to palpate, verified with Doppler. Left foot hot, brisk capillary refill, + 2 edema. Qamar wrap post op dressing intact with bloody drainage distally. Right PT/DP pulses palpable. RA pulse
ox 98%. C/O pain in her left L/E's. Right upper extremity with sling intact. She was informed of the plan of care regarding hourly pulse checks. She was informed to notify RN immediately if she experiences any worsening pain, discomfort, numbness or
tingling, she verbalized her understanding. Safe environment maintained. Call jackson with reach of her left hand.
[2025-01-04] MEDS: DILAUDID 1 MG IV ×6 (07:31→23:14)
[2025-01-04] MEDS: NSS 1000 IV ×2 (07:34→16:30)
--- NOTE | 2025-01-04 07:40 | PTCARENOTE ---
No changes to right wrist drop, with decrease movement and sensation of her middle finger, ring finger and pinky finger. Kristi Pulido from ortho notified of this along with the dorsiflexion of her left great toe with decrease sensation of the plantar
aspect of her left foot. Left AC #20g with 0.9nss @100ml/hr. Right FA#16g with Norepinephrine @ 5mcg/min. Left radial arterial line transduced, calibrated and monitored. with al ports patent and secured. Extremely positional, since she only has use
of her left arm/hand. Attempted to minimize alarms due to this to no avail. Lungs CTA. She was encouraged to cough and deep. +BSx4. Poor appetite. C/O thirst. Tolerating ice chips. Pt verbalized her concern about continuing with her home
medications. Will review this with the care team. Repositioned for comfort. Left L/E with old distal bloody drainage. Safe environment maintained. Will continue to monitor.
--- NOTE | 2025-01-04 07:43 | OR.RPT ---
CT Surgery Operative Note
-
Pre-op Diagnosis: Left Leg Acute Limb Ischemia
Post-op Diagnosis: Same
Procedure: Left Leg Diagnostic Angiogram
Left BK Pop/AT/PT Thrombectomy
Left Leg Above Knee Popliteal artery bypass to below knee popliteal artery bypass
Ligation of Left Popliteal Vein
Left Leg 4 compartment Fasciotomies
Primary Surgeon: Yemi Palencia MD
Assisting Surgeons:
Specimen: None
Cultures: None
Complications / Blood Loss: None
Findings: Indications for Procedure: This is a 74F Fall From standing with a cool pulseless LLE
Procedure: The patient was brought to the operating room and placed on the operating room in supine position. General anesthesia was induced with endotracheal intubation. After reduction of the knee by Orthopedic surgery, the patient was placed on
the OR table in supine position. The patient was prepped and draped in the usual sterile fashion
Diagnostic angiogram was then performed.� The right common femoral artery was visualized.� It was patent.� Under ultrasound guidance, percutaneous access of the right common femoral artery was performed.� Micropuncture needle was inserted with ease
followed by microwire.� The needle was exchanged for micropuncture sheath.� A stiff Glidewire was then inserted into the abdominal aorta.� A aortogram was performed over a Omni Flush catheter.� This allowed navigation to the left lower extremity.�
The left leg was then selected with a stiff Glidewire and the bifurcation was tortuous and peaked.� Therefore a glide cath was used to access the left SFA.� Angiogram was then performed demonstrating an occlusion of the above-knee popliteal artery
consistent with the cross-sectional imaging.� A wire was attempted to use to cross the area but it appeared to immediately exit the lumen behind the knee.� During this time, the left knee appeared to become more swollen and bruised.� Therefore the
decision was made to abort angiographic intervention and proceed with a bypass.� The sheath was removed and a Pro-glide was used to close the arteriotomy.� The left leg and right thigh was prepped and draped in usual sterile fashion.� ultrasound
guidance demonstrated vein that was not adequate for use.� This was also seen on cross-sectional imaging.� An incision from the medial aspect of the thigh 1 fingerbreadth below the femur was performed.� This was carried to the level of the
subcutaneous tissue using electrocautery.� The sartorius muscle was identified and retracted inferiorly.� This allowed entry into the above-knee popliteal space.� The above-knee popliteal artery was then identified and circumferentially dissected.�
It was then controlled with a vessel loop stopping of bleeding below.� The below-knee incision for the BK pop was created 1 fingerbreadth below the tibia.� This was carried to the level of subcutaneous tissue using electrocautery.� There was a
significant minor hematoma in this area that made it very difficult to dissect.� The muscle and tendon in the area was macerated and torn apart almost as if it was a mangled limb.� The neurovascular bundle was identified.� This was traced proximally
where it was noted that there was a clean transection of the popliteal artery and vein behind the knee.� The joint space was seen as was the hardware from the previous knee replacement.� Vessel clamps were used to control the vessels.� This stopped
the hemorrhage.� The popliteal vein was tied with 0 silk suture.� The popliteal artery looked like it could be put back together as an end-to-end anastomosis.� The proximal aspect of the severed BK pop was thrombectomized. �However the Johana
catheter was unable to be passed to the AK pop exposure.� Therefore the decision was made to do a jump graft.� The BK pop proximal transected artery was tied with 0 silk suture.� Since the patient did not have adequate vein, a 6 mm ringed PTFE was
chosen as the graft.� An end-to-side anastomosis performed in the above-knee popliteal artery with 6-0 Prolene suture.� This was then tunneled subcutaneously in the medial aspect of the thigh to the below-knee popliteal artery.� The graft was cut to
length.� The distal below-knee popliteal artery was then thrombectomized with a 3 Johana balloon.� The balloon was seen passing down the anterior tibial artery.� It was then thrombectomized and acute clot was removed.� I was unable to be passed
down the posterior tibial artery.� The artery was then beveled and the graft was beveled.� An end-to-side anastomosis was created with a 6-0 Prolene suture.� Once complete, there was no signal in the foot.� The posterior tibial artery was cut down
on at the ankle.� A transverse arteriotomy was created and a 3 Johana balloon was passed proximally distally removing acute clot.� The posterior tibial artery was then closed with a interrupted 6-0 Prolene suture.� Once complete, Doppler
examination of the foot demonstrated good AT signal and a plantar artery signal.� The wounds were then copiously irrigated.� The above-knee popliteal incision was closed with a 2-0 Vicryl followed by 3-0 Vicryl followed by luz elena.� A BK pop
incision was closed partially to protect the graft.� The fascia was then incised distally through the incision to allow for a fasciotomy.� On the lateral aspect of the leg, an incision over the intermuscular septum was created.� This was carried to
the level of subcu tissue using electrocautery.� The anterior lateral compartments were then released with the Metzenbaum scissors.� There was significant venous bleeding from the popliteal space.� Muscle and vein were oversewn and tied off with
silk sutures.� Once hemostasis is achieved, the PT exposure was closed with a 3-0 Vicryl followed by luz elena.� The fasciotomy sites were packed with saline soaked Kerlix followed by ABDs another Curlex and an Qamar wrap.� The patient was then sent to
the postoperative care unit in serious condition.� At the end of the procedure, there was a palpable dorsalis pedis.
[2025-01-04 08:01] LABS: B.E. - POC -5.2 mmol/L; Glucose - POC 209 mg/dl (70-99); HCO3 - POC 22 mmol/L (21-28); Hematocrit - POC 33 % PCV (37-47); Hemodilution- POC Yes; Hemoglobin Calculated - POC 11.1; Ionized Calcium - POC 1.28 mmol/L (1.15-1.33); Lactate - POC 0.77 mmol/L (0.36-0.75); O2 Saturation %Calculated-POC 99.9 % (94-98); PCO2 - POC 46 mmHg (35-48); PO2 - POC 292 mmHg (83-108); Potassium - POC 4.7 mmol/L (3.5-5.1); Sodium - POC 140 mmol/L (136-145); Specimen Type - POC Arterial; pH - POC 7.28 (7.35-7.45)
--- NOTE | 2025-01-04 08:28 | CON.INTV ---
Consultation
Consultation Request
Date/Time Consultation Requested: 20:38 01/03/25
Date/Time Consultation Performed: 7:00 01/04/25
Medical History
-
History of Present Illness:
74yoF PMH HLD presenting from fall with neurovascular compromise s/p LLE thrombectomy, popliteal bypass, fasciotomy and closed R shoulder reduction now in the ICU for post-operative hypotension.
In the OR, pt was found to have muscle bleeding. Received 2 PRBCs and 1 FFP post-operatively. This morning, pt is feeling well with pain controlled on current regimen. She does not recollect how exactly she fell. Denies lightheadedness, dizziness,
or headache. Reports continued RUE and LLE paresthesias and subjective weakness.
Pt reports having a syncopal episode and prior hypotension after previous orthopedic surgeries. Hx of achilles tendon, R rotator cuff, and L knee replacement surgeries.
Past Medical History
Past Medical History: Other (hyperlipidemia)
Past Surgical History: Orthopedic (R rotator cuff, L knee replacement, L achilles tendon)
Social History
Tobacco: Non-smoker
Allergies / Home Medications
Allergies
Allergy/AdvReac Type Severity Reaction Status Date / Time
Penicillins Allergy Anaphylaxis Verified 08/25/23 09:32
tetracycline Allergy itching Verified 08/25/23 09:32
and rash
seasonal Allergy stuffy nose Uncoded 08/25/23 09:32
Home Medications
�Medication �Instructions �Recorded �Confirmed �Last Taken �Type
atorvastatin 10 mg tablet 10 mg PO DAILY 10/12/14 01/03/25 01/03/25 History
loratadine 10 mg tablet 10 mg PO DAILY 10/12/14 01/03/25 01/03/25 History
famotidine 20 mg tablet 20 mg PO BID 12/17/18 01/03/25 01/03/25 History
magnesium hydroxide 400 mg/5 mL 30 ml PO DAILYPRN PRN constipation 01/14/19 01/03/25 Unknown Rx
oral suspension
ondansetron HCl 4 mg tablet 4 mg PO Q6HPRN PRN n/v #1 tab 01/14/19 01/03/25 Unknown Rx
acetaminophen 325 mg tablet 650 mg PO QID PRN L shoulder pain 01/03/25 01/03/25 Unknown History
docusate sodium 100 mg capsule 100 mg PO BID PRN constipation 01/03/25 01/03/25 Unknown History
escitalopram oxalate 10 mg tablet 20 mg PO DAILY 01/03/25 01/03/25 01/03/25 History
(Lexapro)
semaglutide 1.15 mg SC WEEKLY 01/03/25 01/03/25 12/31/24 History
sennosides 8.6 mg tablet (senna) 2 tab PO DAILYPRN PRN constipation 01/03/25 01/03/25 Unknown History
tramadol 50 mg tablet 50 mg PO HS PRN pain 01/03/25 01/03/25 01/02/25 History
zolpidem 10 mg tablet (Ambien) 10 mg PO HS PRN insomnia 01/03/25 01/03/25 01/02/25 History
Review of Systems
-
History Source: Patient
All other systems: Negative unless noted
Vitals / Labs / Diagnostic Testing
Vital Signs
Temp Pulse Resp BP Pulse Ox
98.2 F 82 13 107/51 97
01/03/25 23:02 01/04/25 07:41 01/04/25 07:41 01/04/25 07:41 01/04/25 07:41
Lab Data
01/04/25 04:14
Laboratory Results
01/03/25 01/03/25 01/03/25
14:02 21:34 21:34
PT 15.3 H
INR 1.18
APTT Cancelled Cancelled 25.5
Diagnostic Testing:
Physical Exam
-
HEENT: Normocephalic and Other (forehead laceration, bridge of nose laceration)
Cardiovascular: S1/S2, Regular Rhythm and Other (dorsal pedis pulse present bilaterally)
Respiratory: Clear and Non-Labored Respirations
GI: Soft
Neurology: Awake, Alert and Oriented
Skin: Warm and Dry
General: Comfortable
Exam:
R wrist drop with digit extensor and flexor weakness. Numbness in distal digits.
LLE edema, plantar numbness, big toe dorsiflexed at rest. Ankle and digit active motion. Knee braced.
Assessment
-
74yoF PMH orthopedic surgeries of R shoulder, and L knee presenting from fall with R shoulder dislocation and L knee dislocation s/p R shoulder reduction, LLE popliteal artery thrombectomy and bypass, fasciotomy, and knee reduction with
post-operative hypotension.
Pt lost significant blood in OR s/p 2 units pRBCs 1 FFP. Hgb downtrending with continued LLE edema. Hx post-operative hypotension with prior orthopedic surgeries. Norepinephrine drip reduced to 2mg this morning. Afebrile saturating appropriately on
room air.
Plan:
- Restart home medications
- Follow H+H
- Wean pressors as tolerated
- Continue neurovascular checks
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
Cardiovascular: Continue to wean pressors. Restart home atorvastatin. Vascular and orthopedic surgery following. Hold DVT prophylaxis with downtrending H+H. SCD on R leg.
Pulm: No interventions
GI: PPI prophylaxis. Pepcid 20mg BID. Bowel regimen started.
ID: no intervention
Endocrine: no intervention
: Continue mejía due to immobilization
Skin: no intervention
Data Reviewed
-
EKG: Tracing personally visualized and interpreted
Radiology: Image personally visualized and interpreted
CT Scan: Image personally visualized and interpreted
Labs: Labs reviewed by me
--- NOTE | 2025-01-04 08:54 | W.PN.ORTHO ---
Today's Communication / Plan
-
74 yo F POD1 closed reduction right shoulder and left knee; left popliteal bypass graft
--Unfortunately, it appears that Yvette might be dealing with neurapraxia of her left upper extremity, as well as of her peroneal nerve on her left lower extremity. We will continue to keep a close eye on this moving forward.
--I did placed order for repeat x-rays of right shoulder and left knee to ensure maintained reduction.
--Continue with knee immobilizer to left lower extremity. It can be removed for dressing changes, but I would avoid flexing the knee.
--NWB to RUE and LLE.
--Pain control prn. Ice prn for pain and edema control.
--Orthopedics will continue to follow along.
Assessment
.
Dressing:
Clean, dry and intact.
Plan
.
Surgery / Date: Closed reduction right shoulder and left knee
Activity:
Out of bed.
PT/OT
Subjective
.
.:
Ms. Summers is POD1 following her left knee and right shoulder closed reductions, as well as left leg popliteal bypass graft performed under the direction of vascular surgery. She is resting comfortably in bed this morning. She reports pain in her left
calf, but otherwise states she is doing ok. She does have concerns about her left foot and difficulty moving right hand.
Vital Signs and Labs
.
Vital Signs and Labs:
Lab Results
01/04/25 04:14
Temp Pulse Resp BP Pulse Ox
98.2 F 82 13 107/51 97
01/03/25 23:02 01/04/25 07:41 01/04/25 07:41 01/04/25 07:41 01/04/25 07:41
PT 15.3 Sec (11.4-14.6) H 01/03/25 21:34
INR 1.18 01/03/25 21:34
Physical Exam
-
Directed exam of the right upper extremity reveals shoulder without signs of deformity. Mild tenderness about the GH joint. Patient is unable to actively extend her wrist or thumb. Sensation to light touch intact distally, but patient endorses
numbness in her ring and small finger, and tingling in her thumb, index and middle fingers. Capillary refill <2 seconds.
Directed exam of the left lower extremity reveals knee immobilizer in place. Surgical dressing intact with bloody drainage distally. Great toe held in dorsiflexed position. Sensation intact to light touch. Detectable pulses distally.
--- NOTE | 2025-01-04 09:17 | W.PN.VS ---
Addendum entered and electronically signed by Sumanth Sandoval III, MD 01/04/25 14:53:
This patient was seen and examined in collaboration with CASSIDY Oglesby. I agree with the history and physical exam as well as the assessment and plan. I have the following additions:
Received signout from Dr. Palencia regarding OR 01/03/25
Patient doing well this morning
Having some pain at the surgical sites
Easily palpable left dorsalis pedis pulse
Left foot is warm
She has obvious resting dorsiflexion of her left hallux that she cannot plantar flex
She has limited plantar and dorsiflexion of the left ankle
Her fasciotomy dressings are clean and dry
In a knee immobilizer
Plan:
Antiplatelet therapy
Fasciotomy dressing changes
Orthopedic surgery plan
Wean Norepi off with target MAP goal >70
Will follow with you. Call with questions/concerns
Signed:
Sumanth Sandoval III, MD
Vascular Surgery
[facility]
Original Note:
Today's Communication / Plan
-
Seen and assessed with Dr Sandoval
Assessment/Plan
-
POD 0.5
Left Leg Diagnostic Angiogram
Left BK Pop/AT/PT Thrombectomy
Left Leg Above Knee Popliteal artery bypass to below knee popliteal artery bypass
Ligation of Left Popliteal Vein
Left Leg 4 compartment Fasciotomies
Plan:
We will return to change dressing later today
Continue neurovascular checks
Continue ICU today
Remainder of care per ortho/primary service
Subjective Data
-
Date of Service: January 04, 2025
Pt seen at bedside this am with Dr Sandoval. Pt offers no complaints at this time. Leg remains wrapped, in brace, mild drainage at heel. On Norepi gtt this morning.
Objective Data
-
Vital Signs
Temp Pulse Resp BP Pulse Ox
99.8 F 84 11 84/65 95
01/04/25 08:20 01/04/25 09:00 01/04/25 09:00 01/04/25 09:00 01/04/25 09:00
Intake and Output
01/03/25 01/04/25 01/05/25
06:59 06:59 06:59
Intake Total 1422.9 / 1541.7 348.9 / 348.9
Output Total 865 / 920 70 / 70
Balance 557.9 / 621.7 278.9 / 278.9
Intake:
IV fluids (Total) 1172.9 / 1291.7 348.9 / 348.9
Levophed 172.9 / 191.7 48.9 / 48.9
Nss 1,000 ml @ 100 mls/hr IV . 900 / 1000 300 / 300
Q10H VARUN Rx#:[id number]
normosol 100 / 100
Blood Products 250 / 250
Fresh frozen plasma 250 / 250
Output:
Urine, Sandoval 865 / 920 70 / 70
Lab Results
01/04/25 04:14
Calcium 8.3 mg/dl (8.4-10.2) L 01/04/25 04:14
Phosphorus 4.7 mg/dl (2.5-4.5) H 01/03/25 21:34
Magnesium 2.0 mg/dl (1.6-2.3) 01/03/25 21:34
Total Bilirubin 0.8 mg/dl (0.2-1.3) 01/04/25 04:14
AST 182 U/L (14-36) H 01/04/25 04:14
ALT 128 U/L (0-35) H 01/04/25 04:14
Alkaline Phosphatase 40 U/L (38-126) 01/04/25 04:14
Total Protein 4.7 g/dl (6.3-8.2) L D 01/04/25 04:14
Albumin 3.0 g/dl (3.5-5.0) L 01/04/25 04:14
Physical Exam
-
AAOx3
No tachypnea on RA
No tachycardia
Abd soft
LLE wrapped in KEITH with knee brace intact
Foot warm, pink
Left great toe hyperextened, can move slightly. slight decreased sensation on the plantar surface
[2025-01-04 10:23] LABS: Hematocrit 25.8 % (37.0-47.0); Hemoglobin 8.8 g/dL (12.0-16.0)
[2025-01-04] MEDS: LIPITOR 10 MG PO (10:24)
[2025-01-04] MEDS: CLARITIN 10 MG PO (10:25)
[2025-01-04] MEDS: MIRALAX PO ×3 (10:25→23:24)
[2025-01-04] MEDS: PEPCID 20 MG PO ×2 (10:25→20:00)
[2025-01-04] MEDS: LEXAPRO 20 MG PO (10:25)
[2025-01-04] MEDS: ZOFRAN 4 MG IV (10:30)
--- NOTE | 2025-01-04 11:08 | CM ---
Addendum entered by Alonso Carrera 01/04/25 11:17:
Does have HC-POA. No VA benefits. PA is Sydney Jacob with [facility]. Pharmacy is [facility] on [address] in .
Original Note:
Initial assessment completed with patient who lives alone in a 2 story home plus basement with B/B on , 1/2 bath on , 2 steps to enter. 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 There
is a RW and SPC in the home from 's previous usage. No in-home services. Discharge POC: Anticipate STR. Await therapy evaluation and recommendation.
POD#1: L LE Fem-Pop bypass, R shoulder repair s/p dislocation, L knee repair s/p dislocation.
--- NOTE | 2025-01-04 12:41 | W.PN.HOSP.TC ---
Today's Communication/Plan
-
Monitor vitals
See plan
PT/OT recs per vascular, orthopedics
Monitor blood pressure closely, currently off Levophed
Continue with neurovascular checks
Monitor hemoglobin
Monitor LFTs
Assessment / Plan
Assessment / Plan
General: Well Developed, Well Nourished and No Apparent Distress
HEENT: NormoCephalic, Moist mucous membranes and Atraumatic
Respiratory: Clear
Cardiac: S1/S2 and Regular Rhythm; No Murmur or Rub
GI: Soft, Non Tender, Non Distended and Normal Bowel Sounds
Musculoskeletal: Edema, R wrist drop with digit extensor and flexor weakness. Numbness in distal digits.
Knee braced.
Neuro: Nonfocal/grossly intact
Dislocation of left total knee arthroplasty with complete occlusion of the popliteal artery with distal reconstitution/dissection
s/p Left BK Pop/AT/PT Thrombectomy
s/p Left Leg Above Knee Popliteal artery bypass to below knee popliteal artery bypass
s/p Ligation of Left Popliteal Vein
s/p Left Leg 4 compartment Fasciotomies
# Ambulatory dysfunction with mechanical fall
post Op hypotensive; started levophed, now off. Continue with neurovascular checks
-As per CT angiogram of left lower extremity
-Heparin drip started
-Continue aspirin, statin
s/p closed reduction right shoulder and left knee by ortho
NWB to RUE and LLE
cw pain control
- Pelvic x-ray negative
Elevated LFTs
Likely secondary to hypotension
Continue to monitor
hold statin
Anemia, likely acute blood loss
Continue to monitor
# Right shoulder anterior dislocation
- s/p closed reduction
# Forehead laceration
- CT head shows no acute abnormality
History of right rotator cuff injury status post surgery in 2019
History of left rotator cuff injury managed conservatively
- Plan for shoulder replacement in the near future
Osteoarthritis
GERD
Hypercholesteremia
Migraine
Anxiety/depression
Full code
DVT prophylaxis�per vascular
I spent a total of 52 minutes with the patient or on the floor. More than 50% of this time involved counseling and coordination of care.
Anticipated Discharge: > 48 hours
Subjective/Interval History
-
Date of Service: January 04, 2025
Has pain
Objective Data
-
Labs:
Laboratory Results
01/04/25 01/04/25 01/04/25
03:02 04:14 10:05
WBC 10.2
Hgb 9.7 L 9.4 L 8.8 L
Hct 28.0 L 27.4 L 25.8 L
Plt Count 151
Sodium 136
Potassium 4.6
Chloride 111 H
Carbon Dioxide 23
BUN 18 H
Creatinine 0.7
Glucose 130 H
Calcium 8.3 L
Total Bilirubin 0.8
AST 182 H
ALT 128 H
Alkaline Phosphatase 40
Vital Signs:
Vital Signs
Temp Pulse Resp BP Pulse Ox
99.8 F 88 16 113/46 96
01/04/25 08:20 01/04/25 12:00 01/04/25 12:00 01/04/25 11:30 01/04/25 11:30
I&O
01/03/25 01/04/25 01/05/25
06:59 06:59 06:59
Intake Total 1422.9 / 1541.7 548.9 / 548.9
Output Total 865 / 920 180 / 180
Balance 557.9 / 621.7 368.9 / 368.9
--- NOTE | 2025-01-04 14:00 | PTCARENOTE ---
PT regaining motion of Right fingers PT reports increased movement and sensation of R hand fingers; no motion of R wrist; L great toe regaining slight flexion and slight increased sensation of L foot; Lungs RA 500 IS deep breathing and coughing
encouraged; GI wnl poor apatite; RALF mejía with adequate output; R leg dressing changed; all surgical sights CDI; PIV's wnl; see worklist for detailed assessment
--- NOTE | 2025-01-04 15:20 | WOUNDNOTE ---
[facility] RN note: Patient admitted with dislocation L knee/popliteal artery occlusion. Patient fell outside prior to admission. s/p L pop bypass graft, LLE fasciotomy, closed reduction LLE and R shoulder. Sling in place RUE, L knee immobilizer.
See H&P for complete history.
PMH: Achilles rupture repair RLE 2004, Moh's surgery 2009, cholecystectomy, R rotator cuff surgery, bilateral knee replacement, arthritis.
Wound Location and type/assessment: Patient admitted with: upper forehead laceration suspect to subcutaneous layer with possible small hematoma. Small dermal abrasion mid L forehead and nasal bridge. L heel blanchable red.
Appetite: on regular diet. 100% for lunch documented.
Pressure redistribution devices in place: Centrella Max air bed. Pillow to elevate heels off bed.
Plan: Laceration and abrasions cleansed with saline. Vaseline gauze and Telfa applied to forehead wounds. 1.6x2 inch silicone border foam applied to nasal bridge. Air chair cushion left in room. Heel elevation maintained. FOUZIA Sommer stated he
checked patient's sacrum and reports sacral skin is intact.
Updated Dr. Terry via [place] text including forehead photo asking to consider surgeon consult to evaluate forehead laceration for sutures. Dr. Terry consulted general surgery. Dr. Al and JAVIER Carrillo in to see patient. FOUZIA Quiles with patient at end of
visit.
Care plan to be updated. Will follow peripherally as needed. Vascular and ortho following.
Recommend follow up at wound care center upon discharge if needed.
--- NOTE | 2025-01-04 15:20 | WOUNDNOTE ---
[facility] RN note: Patient admitted with dislocation L knee/popliteal artery occlusion. Patient fell outside prior to admission. s/p L pop bypass graft, LLE fasciotomy, closed reduction LLE and R shoulder. Sling in place RUE, L knee immobilizer.
See H&P for complete history.
PMH:
Wound Location and type/assessment: Patient admitted with: upper forehead laceration suspect to c
Appetite:
Pressure redistribution devices in place:
Plan:
Will confirm orders with hospitalist and update nurse.
Updated care plan and will follow as needed.
Note to case management of equipment requested for discharge:
Recommend follow up at wound care center upon discharge.
--- NOTE | 2025-01-04 16:25 | CON.GS ---
Addendum entered and electronically signed by Jose Miguel Al MD 01/04/25 18:25:
I saw and examined the patient independently.
The Product Support Specialist's note was reviewed and I agree with the note, assessment and plan except where noted below.
Comment: This is a 74-year-old female with a history of recent fall and significant left lower extremity injury status post repair yesterday who was noted to have a significant scalp laceration for which we are consulted.
Bedside laceration repair was performed. See separate dictated note.
Wound care: Cover wound with gauze and wrap in place to apply gentle pressure.
Sutures to come out in 1 week. Okay to shower in 3 days, no soaking the incision.
Risks/Benefits/Alternatives, expected post procedure course course and possible complications (bleeding, infection, wound breakdown) discussed at length. Patient wishes to proceed with surgery. All questions answered. Verbal consent obtained.
I spent 60 minutes in total for the care of this patient today including direct patient care and counseling, reviewing labs, imaging, coordination of care, as well as documentation.
Original Note:
Consultation
-
Date/Time Consultation Performed: 01/04/25 1540
Reason for Consultation: Head laceration
Medical History
-
Chief Complaint: s/p fall
History of Present Illness:
Ms Summers is a 74 yo female who presented yesterday after a fall outdoors with dislocation of the right glenohumeral joint as well as dislocation of a prior left TKA with complete occlusion of the popliteal artery with limb ischemia necessitating
emergency surgery for closed reduction of the right glenohumeral joint and left prosthetic knee by orthopedics and left angiogram, thrombectomy, popliteal artery bypass, ligation of the popliteal vein as well as 4 compartment fasciotomies. An upper
middle forehead laceration was noted at the time of injury and head ct was preformed without acute intracranial abnormality. Surgery is consulted today for suturing of the laceration.
Past Medical History
Past Medical History: Hypercholesterolemia
Past Surgical History: Appendectomy, Orthopedic (right rotator cuff, left knee replacement and left Achilles tendon procedure) and Tonsilectomy
Social History
Tobacco: Non-Smoker
Family History
Family History: Reviewed & Not Pertinent
Allergies / Home Medications
Allergy/AdvReac Type Severity Reaction Status Date / Time
Penicillins Allergy Anaphylaxis Verified 08/25/23 09:32
tetracycline Allergy itching Verified 08/25/23 09:32
and rash
seasonal Allergy stuffy nose Uncoded 08/25/23 09:32
�Medication �Instructions �Recorded �Confirmed �Type
atorvastatin 10 mg tablet 10 mg PO DAILY High Cholesterol 10/12/14 01/03/25 History
loratadine 10 mg tablet 10 mg PO DAILY Allergies 10/12/14 01/03/25 History
famotidine 20 mg tablet 20 mg PO BID Gastrointestinal Issue 12/17/18 01/03/25 History
magnesium hydroxide 400 mg/5 mL 30 ml PO DAILYPRN PRN constipation 01/14/19 01/03/25 Rx
oral suspension
ondansetron HCl 4 mg tablet 4 mg PO Q6HPRN PRN n/v #1 tab 01/14/19 01/03/25 Rx
acetaminophen 325 mg tablet 650 mg PO QID PRN L shoulder pain 01/03/25 01/03/25 History
docusate sodium 100 mg capsule 100 mg PO BID PRN constipation 01/03/25 01/03/25 History
escitalopram oxalate 10 mg tablet 20 mg PO DAILY Mental 01/03/25 01/03/25 History
(Lexapro) Health/Anxiety
semaglutide 1.15 mg SC WEEKLY Diabetes 01/03/25 01/03/25 History
sennosides 8.6 mg tablet (senna) 2 tab PO DAILYPRN PRN constipation 01/03/25 01/03/25 History
tramadol 50 mg tablet 50 mg PO HS PRN pain 01/03/25 01/03/25 History
zolpidem 10 mg tablet (Ambien) 10 mg PO HS PRN insomnia 01/03/25 01/03/25 History
Review of Systems
-
History Source: Patient
All other systems: Negative unless noted
A 10 point review of systems was completed, and was negative except as per HPI.
Physical Exam
Vital Signs
Temp Pulse Resp BP Pulse Ox
100.0 F 88 16 113/46 96
01/04/25 15:15 01/04/25 12:00 01/04/25 15:15 01/04/25 11:30 01/04/25 15:15
01/03/25 01/04/25 01/05/25
06:59 06:59 06:59
Actual Weight 73.1 kg
Body Mass Index (BMI) 26.0
Lab Results
01/04/25 04:14
WBC 10.2 10^3/uL (4.8-10.8) 01/04/25 04:14
Hgb 8.8 g/dL (12.0-16.0) L 01/04/25 10:05
Hct 25.8 % (37.0-47.0) L 01/04/25 10:05
Plt Count 151 10^3/uL (130-400) 01/04/25 04:14
Abs Immat Gran (auto) 0.0 10^3/uL (0-0.05) 01/04/25 04:14
Neutrophils % 74.3 % (42.2-75.2) 01/04/25 04:14
Physical Exam
General: No Apparent Distress and Comfortable
HEENT: Other (laceration to the upper middle forehead just under the hairline 2 linear cuts perpendicular to one another with underlying hematoma, full thickness through the skin)
Musculoskeletal: Other (LLE with dressing intact)
Neuro: Awake, Alert and AO x 3
Psych: Calm
Data Reviewed
-
CT Scan: Image Personally Visualized and interpreted (head ct), Report Reviewed by me, Discussed with Physician, Discussed with Nurse and Discussed with Patient
Labs: Labs Reviewed by me, Discussed with Physician, Discussed with Patient and Discussed with Family
Old Records: Reviewed
Assessment / Plan
-
Ms Summers is a 74 yo female who presented yesterday after a fall outdoors with dislocation of the right glenohumeral joint as well as dislocation of a prior left TKA with complete occlusion of the popliteal artery with limb ischemia necessitating
emergency surgery. General surgery consulted today for repair of forehead laceration. Head Ct reviewed and without acute intracranial abnormalities.
POD #1 reduction of the right glenohumeral joint and left prosthetic knee by orthopedics and left angiogram, thrombectomy, popliteal artery bypass, ligation of the popliteal vein as well as 4 compartment fasciotomies.
Plan:
The laceration was repaired at bedside (see separate procedure note from surgeon)
Pressure dressing left in place, ok to remove in AM, reinforce prn
Sutures to be removed in one week
GS team to follow peripherally, please call with questions/concerns
--- NOTE | 2025-01-04 18:24 | PTCARENOTE ---
no change from previous assessment
--- NOTE | 2025-01-04 18:25 | W.PN.SURGUPD ---
Surgical Update
Surgical Update
Bedside laceration repair
A team time-out was performed confirming the location/laterality of the procedure, consent and allergies reviewed.
Location: Scalp/forehead
Dimensions: One by one cm
Local: 1% Lidocaine
Escapement Maker: Lorena
The skin was cleaned with Betadine and anesthetized with lidocaine. A small hematoma that had formed was evacuated and the wound was rinsed with saline. The underlying galea was intact. There was some soft tissue loss underneath the skin flap
which was in an L-shape pattern. After achieving hemostasis, the wound was closed with 5 interrupted 3-0 nylon sutures. The wound was then dressed with gauze and Kerlix wrap was used to hold it in place and apply gentle pressure. No specimens
were sent to Pathology/Culture. The patient tolerated the procedure well, wound care instructions reviewed and all questions were answered.
--- NOTE | 2025-01-04 20:00 | PTCARENOTE ---
assumed care of pt from previous RN. pt A&Ox4, bedrest s/p ortho/vasc surgery. SR on tele-monitor. POX 94% on RA. abd s/n, +BS. mejía catheter draining clear, yellow colored urine. all surgical sites stable, CDI. PIV intact. L LE immobilizer in
place. plan of care discussed w/ pt, pt in agreement. see worklist for complete nursing assessment, interventions, VS, and I&Os.
--- NOTE | 2025-01-04 20:56 | W.PN.UPDATE ---
Addendum entered and electronically signed by CASSIDY Salazar 01/04/25 21:11:
[id number]
WITHDRAWAL NOTE, WRONG PATIENT
Original Note:
Update Note
Progress Note Update
Patient arrived at�the ICU, unresponsive with a GCS of 3. Decision made to intubate for airway protection due to poor neuro status, large amount of secretions needing to be suctioned, and�vomiting earlier in the day. Patient intubated uneventfully.
Discuss sedation with Doctor Lencho, he wanted to continue ketamine drip. Propofol and fentanyl bolus added for agitation if needed during�MRI.�
[2025-01-04 21:12] LABS: Hematocrit 21.4 % (37.0-47.0); Hemoglobin 7.3 g/dL (12.0-16.0)
[2025-01-04] MEDS: TYLENOL 650 MG PO (21:26)
[2025-01-05] VITALS (14 sets, daily range): BP systolic 95–102; BP diastolic 41–57
--- NOTE | 2025-01-05 | PTCARENOTE ---
assessment remains unchanged. VSS.
[2025-01-05] MEDS: DILAUDID 0.5 MG IV ×3 (03:31→20:29)
--- NOTE | 2025-01-05 03:45 | PTCARENOTE ---
no acute changes. VSS. U/O >0.5ml/kg/h. AM labs collected and sent.
[2025-01-05 03:58] LABS: Hematocrit 23.7 % (37.0-47.0); Hemoglobin 7.8 g/dL (12.0-16.0); Mean Corp Hgb Conc. 32.9 g/dL (33.0-37.0); Mean Corpuscular Volume 94.4 fL (81.0-99.0); Nucleated Red Blood Cells % 0 %; Platelet Count 112 10^3/uL (130-400); Red Cell Dist. Width 13.2 % (11.5-14.5)
[2025-01-05 04:17] LABS: ALT (SGPT) 114 U/L (0-35); AST (SGOT) 125 U/L (14-36); Albumin 2.9 g/dl (3.5-5.0); Alkaline Phosphatase 49 U/L (38-126); Blood Urea Nitrogen 15 mg/dl (7-17); Calcium 8.2 mg/dl (8.4-10.2); Carbon Dioxide 26 mmol/L (22-30); Chloride 108 mmol/L (98-107); Estimated Creatinine Clearance 68 ml/min; Glucose 104 mg/dl (70-99); Potassium 4.1 mmol/L (3.5-5.1); Sodium 135 mmol/L (135-145); Total Protein 4.6 g/dl (6.3-8.2); eGFR > 60.00
[2025-01-05] MEDS: TYLENOL 650 MG PO ×4 (06:31→23:06)
--- NOTE | 2025-01-05 07:53 | W.PN.VS ---
Addendum entered and electronically signed by Sumanth Sandoval III, MD 01/05/25 21:54:
This patient was seen and examined in collaboration with CASSIDY Paul earlier today. This is a late entry. I agree with the history and physical exam as well as the assessment and plan. I have the following additions:
Overall she seems to be doing well
Pain controlled
Left foot is warm
Easily palpable dorsalis pedis pulse
Fasciotomy dressings changed
Muscle is pink and healthy appearing at the base of both incisions
Will plan to apply VAC dressing
Hoping we may be able to close one of the fasciotomy incisions later this week
Will plan to start prophylactic antibiotics given the presence of prosthetic graft and open wounds
Discussed at length with patient who agrees with plan
Signed:
Sumanth Sandoval III, MD
Vascular Surgery
[facility]
Addendum entered and electronically signed by CASSIDY Paul 01/05/25 11:33:
Given open fasciotomy sites and with newly placed bypass prosthetic and existing left knee replacement will be beneficial to have infectious disease weigh in on whether or not prophylactic antibiotic regimen recommended, in meantime initiated on
Vanco for coverage against skin zafar, will hold off on additional coverage as patient has an anaphylactic reaction to penicillin.
Original Note:
Today's Communication / Plan
-
Below plan reviewed with attending Dr. Sumanth Sandoval III.
Assessment/Plan
-
POD 2
Left Leg Diagnostic Angiogram
Left BK Pop/AT/PT Thrombectomy
Left Leg Above Knee Popliteal artery bypass to below knee popliteal artery bypass
Ligation of Left Popliteal Vein
Left Leg 4 compartment Fasciotomies
Plan:
Will return to reassess fasciotomy surgical sites, plan is for wound VAC vs. possible closure later this week
Continue neurovascular checks
Remainder of care per ortho/primary service
Subjective Data
-
Date of Service: January 05, 2025
Patient seen and examined at bedside, reports continued well-managed postoperative pain. Endorses improvement to movement at right hand/wrist, unchanged movement to left foot.
Objective Data
-
Vital Signs
Temp Pulse Resp BP Pulse Ox
99.8 F 83 16 98/44 95
01/05/25 06:00 01/05/25 07:00 01/05/25 07:00 01/05/25 07:00 01/05/25 04:00
Intake and Output
01/04/25 01/05/25 01/06/25
06:59 06:59 06:59
Intake Total 1422.9 / 1541.7 1848.9 / 1848.9
Output Total 865 / 920 1515 / 1565 50 / 50
Balance 557.9 / 621.7 333.9 / 283.9 -50 / -50
Intake:
Oral fluids 500 / 500
IV fluids (Total) 1172.9 / 1291.7 1348.9 / 1348.9
Levophed 172.9 / 191.7 48.9 / 48.9
Nss 1,000 ml @ 100 mls/hr IV . 900 / 1000 1300 / 1300
Q10H VARUN Rx#:[id number]
normosol 100 / 100
Blood Products 250 / 250
Fresh frozen plasma 250 / 250
Output:
Urine, Sandoval 865 / 920 1165 / 1215 50 / 50
Urine, Voided 350 / 350
Lab Results
01/05/25 03:42
01/05/25 03:42
Calcium 8.2 mg/dl (8.4-10.2) L 01/05/25 03:42
Phosphorus 4.7 mg/dl (2.5-4.5) H 01/03/25 21:34
Magnesium 2.0 mg/dl (1.6-2.3) 01/03/25 21:34
Total Bilirubin 0.6 mg/dl (0.2-1.3) 01/05/25 03:42
AST 125 U/L (14-36) H 01/05/25 03:42
ALT 114 U/L (0-35) H 01/05/25 03:42
Alkaline Phosphatase 49 U/L (38-126) 01/05/25 03:42
Total Protein 4.6 g/dl (6.3-8.2) L 01/05/25 03:42
Albumin 2.9 g/dl (3.5-5.0) L 01/05/25 03:42
Physical Exam
-
AAOx3
No tachypnea on RA
No tachycardia
ABD soft
LLE wrapped in KEITH with knee brace intact
Foot warm, pink
Left great toe hyperextened, can move slightly. slight decreased sensation on the plantar surface
[2025-01-05] MEDS: CLARITIN 10 MG PO (08:16)
[2025-01-05] MEDS: PEPCID 20 MG PO ×2 (08:16→20:28)
[2025-01-05] MEDS: LEXAPRO 20 MG PO (08:16)
--- NOTE | 2025-01-05 08:16 | W.PN.INTV ---
Today's Communication / Plan
Recommendations
Plan reviewed with attending.
Assessment
-
74yoF presenting from fall with R shoulder dislocation and L knee dislocation POD 2 s/p R shoulder reduction, LLE popliteal artery thrombectomy and bypass, fasciotomy, and knee reduction with resolving post-operative hypotension.
Pt lost significant blood in OR s/p 2 units pRBCs 1 FFP. Hgb stabilized to 7.8 from 7.3 yesterday. Afebrile saturating appropriately on room air. Maintaining BP off pressors. R wrist drop and weakness improved from yesterday. L hallux continues to
be fixed in dorsiflexion with LLE plantar paresthesias.
#Hypotension, post surgical
- Off pressors. Continue to monitor blood pressure.
- PRN Midodrine.
#L knee dislocation and neurovascular compromise s/p reduction, thrombectomy, bypass and fasciotomy
- Xray confirmed proper knee alignment.
- Orthopedic and vascular surgery following. Vascular surgery started prophylactic vancomycin for open wounds. ID consulted.
- PT/OT
#R shoulder dislocation s/p reduction with improving neurapraxia
- Xray confirmed shoulder is aligned in socket.
- Sling is off. Symptoms are improving with ability to move wrist. Continue to monitor.
- Orthopedic surgery following.
- PT/OT
#Face laceration
- Surgery repaired lac yesterday. F/u for suture removal 1 wk.
#Anxiety/depression
- Continue home lexapro
#Hypercholesterolemia
- Continue home atorvastatin
#GERD
- Transition to home famotidine and bowel regimen
DVT prophylaxis: R SCD
Sandoval: Remove as directed.
Diet: Regular
Subjective Dataa
Subjective Data
Date of Service:
Date of Service: January 05, 2025
Subjective:
No acute overnight events. Pt reports managed pain on current regimen. She is having soreness from her head laceration repaired by surgery yesterday, but her extremity wound pain is controlled. She reports improving R arm weakness. She stated her
sling fell off and was not holding her arm well but reports no changes since sling has been off. She reports no changes in sensation in her LLE.
Continues using her incentive spirometer and SCD on R leg.
Objective Data
Data Reviewed
Vital Signs / I&O / Oxygen:
Vital Signs
Temp Pulse Resp BP Pulse Ox
99.8 F 83 16 98/44 95
01/05/25 06:00 01/05/25 07:00 01/05/25 07:00 01/05/25 07:00 01/05/25 04:00
Intake and Output
01/04/25 01/05/25 01/06/25
06:59 06:59 06:59
Intake Total 1422.9 / 1541.7 1848.9 / 1848.9
Output Total 865 / 920 1515 / 1565 50 / 50
Balance 557.9 / 621.7 333.9 / 283.9 -50 / -50
SaO2 95
Nasal Cannula flow liters per 2
minute
Physical Exam
General: Comfortable
HEENT: Normocephalic, Anicteric and Moist Mucous Membranes
Cardiovascular: S1-S2, Regular Rhythm and Other (peripheral pulses palpable)
Respiratory: Clear and Non-Labored Respirations
Neurology: AO x 3 and Other (L great toe fixed in a dorsiflexed position, plantar numbness improving but still reduced, R wrist drop persists with weak but improving motion of fingers compared to yesterday, )
Skin: Warm and Dry
Labs/Micro/Reports
Lab Data
01/05/25 03:42
01/05/25 03:42
[2025-01-05] MEDS: LIPITOR 10 MG PO (08:17)
[2025-01-05] MEDS: NEURONTIN 100 MG PO ×2 (08:17→20:28)
[2025-01-05] MEDS: MIRALAX 17 GRAMS PO ×2 (08:18→20:28)
--- NOTE | 2025-01-05 08:18 | W.PN.ORTHO ---
Today's Communication / Plan
-
POD2 closed reduction right shoulder and left knee; left popliteal bypass graft
--Unfortunately, it appears that Yvette might be dealing with neurapraxia of her right upper extremity, as well as of her peroneal nerve on her left lower extremity. (definite improvement today) We will continue to keep a close eye on this moving
forward.
-- Repeat x-ray right shoulder shows shoulder reduced with degenerative changes but no fracture while the left knee replacement appears stable and reduced.
--Continue with knee immobilizer to left lower extremity. It can be removed for dressing changes, but would avoid knee flexion
--Patient may weight-bear left lower extremity in knee immobilizer if okay with vascular surgery
--NWB to RUE.
--Pain control prn. Ice prn for pain and edema control.
--Orthopedics will continue to follow along.
-- Follow-up with Dr. Santana 2 weeks for right shoulder and Dr. Turpin left knee
Assessment
.
Dressing:
Left lower extremity knee immobilizer in place and Qamar wrap down over her foot. Great toe still in hyperextension. Numbness along the plantar aspect of the forefoot still present. No numbness over the first webspace. Weakness great toe flexion
noted.
Right upper extremity numbness resolved. She is able to flex and extend the fingers. She is seeing some extension about the wrist. She is unable to extend the thumb.
Plan
.
Surgery / Date: Closed reduction right shoulder and left knee
DVT Prophylaxis: Other
Activity:
Out of bed.
PT/OT
Subjective
.
.:
Patient resting comfortably. She relates that her right shoulder is feeling much better today. She feels that though she is able to move the extremity more and the numbness seems to be improving. Left foot weakness still present but numbness
improving.
Vital Signs and Labs
.
Vital Signs and Labs:
Lab Results
01/05/25 03:42
08/26/25 03:42
Temp Pulse Resp BP Pulse Ox
99.8 F 83 16 98/44 95
01/05/25 06:00 01/05/25 07:00 01/05/25 07:00 01/05/25 07:00 01/05/25 04:00
PT 15.3 Sec (11.4-14.6) H 01/03/25 21:34
INR 1.18 01/03/25 21:34
--- NOTE | 2025-01-05 11:12 | PN.CDI ---
CDI
- -
CDI:
Physician Documentation Request
Admit Date: 01/03/25 15:28
Dear Doctor Harrison,
Please review the following and provide your response in the progress notes.
Current documentation includes a diagnosis of hypotension.
Clinical Indicators:
Pt admitted for Dislocation of left total knee arthroplasty with complete occlusion of the popliteal artery with distal reconstitution/dissection
s/p Left BK Pop/AT/PT Thrombectomy
s/p Left Leg Above Knee Popliteal artery bypass to below knee popliteal artery bypass
s/p Ligation of Left Popliteal Vein
s/p Left Leg 4 compartment Fasciotomies.
01/03 Anesthesia: ' Blood Loss: 1000 mL'
01/04 Progress Note: ' post Op hypotensive; started levophed, now off.'
Pt noted to receive 3 Liters NSS
Levophed from 01/03 20:15 to 01/04 10:00
Laboratory Tests
01/03/25 01/04/25 01/04/25
13:30 04:14 20:58
Hgb 12.9 9.4 L 7.3 L
Please clarify which of the following is the most likely etiology of the above symptoms and treatment rendered:
Hypovolemic shock - indicate if due to surgery, trauma or other etiology
Hemorrhagic shock - indicate if due to surgery, trauma or other etiology
Post-Op Hypotension Only
Other
Use of terms such as suspected, likely, concern for, or probable (associated with a specific diagnosis that is being evaluated, monitored, or treated as if it exists) are acceptable and can be coded in the inpatient setting, when documented at the
time of discharge.
Thank you,
Mayte Mccurdy RN, BSN
CDI Specialist
[place] [facility]
Please use your independent medical judgment in providing your response.
--- NOTE | 2025-01-05 11:32 | PHA.VAN.IN ---
Assessment
- Assessment
Renal Function: Appears similar to baseline
AUC Dosing Plan
- Dosing Variables
Dosing Weight (kg): 73
Dosing CrCl (ml/min): 68
Vd coefficient (L/kg): 0.7
- Empiric Dosing
Maintenance Regimen: Vanc 750mg Q12H - first dose now, then 1999 then standard deven 0600
Estimated AUC (mcg*h/mL): 497
Estimated Peak (mcg*h/mL): 28.3
Estimated Trough (mcg/ml): 14.5
Estimated Half Life (H): 11.4
- Monitoring
No levels ordered at this time: consider levels if course prolonged
tentatively planned as prophylaxis until closure possibly later this week
Pharmacokinetics Vancomycin I
- -
Patient Age: 74
Patient Sex: Female
Vancomycin Day #: 1
Indication: Prophylaxis (Surg,Hiv,...)
Requesting Provider: Emily Arango
Pertinent Antimicrobial Allergies:
penicillins - anaphylaxis
tetracycline - itching & rash
Height / Weight:
Height 5 ft 6 in
Actual Weight 73.1 kg
Pertinent Past Medical History: fasciotomy
- Vital Signs / Lab Results
Temp Pulse Resp BP Pulse Ox
98.7 F 93 20 102/53 96
01/05/25 08:00 01/05/25 10:09 01/05/25 10:09 01/05/25 10:09 01/05/25 09:00
Lab Results - Hematology
01/03/25 01/03/25 01/04/25
13:30 21:34 04:14
WBC 18.6 H 13.3 H 10.2
01/05/25
03:42
WBC 6.8
Lab Results - Chemistry
01/03/25 01/03/25 01/04/25
13:30 21:34 04:14
BUN 16 16 18 H
Creatinine 0.6 0.5 L 0.7
Estimated Creat Clear 82 82 68
Albumin 4.2 3.0 L
01/05/25
03:42
BUN 15
Creatinine 0.7
Estimated Creat Clear 68
Albumin 2.9 L
[2025-01-05] MEDS: VANCOCIN 150 IV (12:11)
--- NOTE | 2025-01-05 12:26 | W.PN.UPDATE ---
Update Note
Progress Note Update
Wound VAC placed to left lower extremity medial and lateral fasciotomy site, will change on Saturday01/08/25 and reassess if closure fasciotomies can be achieved at that time.
--- NOTE | 2025-01-05 12:26 | CM ---
Chart reviewed and onsite case manager following with patient progress, will need PT/OT when stable, and possible rehab placement.
Plan; To follow with patient progress.
[2025-01-05] MEDS: DILAUDID 1 MG IV ×2 (12:30→16:22)
--- NOTE | 2025-01-05 12:57 | PTCARENOTE ---
Heather Arango at bedside and redressed L leg wound vac to open areas, dry abd applied to luz elena at ankle and thigh and then wrapped with gina wrap prior to reapplying immobilizer. Pt had been given dilaudid prior to dressing change, but more
uncomfortable by the end. Medicated as charted. Pt aware of pending transfer.
--- NOTE | 2025-01-05 14:02 | W.PN.HOSP.TC ---
Today's Communication/Plan
-
Monitor vital signs and see plan
Monitor hemoglobin
PT/OT per Ortho and vascular
Antibiotic
cw wound vac per vascular
Assessment / Plan
Assessment / Plan
General: Well Developed, Well Nourished and No Apparent Distress
HEENT: NormoCephalic, Moist mucous membranes and Atraumatic
Respiratory: Clear
Cardiac: S1/S2 and Regular Rhythm; No Murmur or Rub
GI: Soft, Non Tender, Non Distended and Normal Bowel Sounds
Musculoskeletal: Edema, R wrist drop with digit extensor and flexor weakness. Numbness in distal digits.
Knee braced.
Neuro: Nonfocal/grossly intact
Dislocation of left total knee arthroplasty with complete occlusion of the popliteal artery with distal reconstitution/dissection
s/p Left BK Pop/AT/PT Thrombectomy
s/p Left Leg Above Knee Popliteal artery bypass to below knee popliteal artery bypass
s/p Ligation of Left Popliteal Vein
s/p Left Leg 4 compartment Fasciotomies
# Ambulatory dysfunction with mechanical fall
post Op acute hemorrhagic shock secondary to acute blood loss; started levophed, now off. Continue with neurovascular checks
Wound VAC placed to left lower extremity medial and lateral fasciotomy site by vascular. Reevaluation on Saturday and reassess if closure of fasciotomies can be achieved. Also started on antibiotics by vascular. ID consult
-As per CT angiogram of left lower extremity
- Now off heparin drip, anticoagulation per vascular
-Continue aspirin, statin
s/p closed reduction right shoulder and left knee by ortho
NWB to RUE; weightbearing as tolerated with knee immobilizer on left lower extremity
P/OT per orhto and vascular.
cw pain control
- Pelvic x-ray negative
On as needed midodrine
Thrombocytopenia
Monitor
Elevated LFTs
Likely secondary to hypotension
Continue to monitor
Anemia, likely acute blood loss
Continue to monitor
# Right shoulder anterior dislocation
- s/p closed reduction
# Forehead laceration
- CT head shows no acute abnormality
History of right rotator cuff injury status post surgery in 2019
History of left rotator cuff injury managed conservatively
- Plan for shoulder replacement in the near future
Osteoarthritis
GERD
Hypercholesteremia
Migraine
Anxiety/depression
Full code
DVT prophylaxis�per vascular
I spent a total of 52 minutes with the patient or on the floor. More than 50% of this time involved counseling and coordination of care.
Anticipated Discharge: > 48 hours
Subjective/Interval History
-
Date of Service: January 05, 2025
has pain
Objective Data
-
Labs:
Laboratory Results
01/05/25
03:42
WBC 6.8
Hgb 7.8 L
Hct 23.7 L
Plt Count 112 L D
Sodium 135
Potassium 4.1
Chloride 108 H
Carbon Dioxide 26
BUN 15
Creatinine 0.7
Glucose 104 H
Calcium 8.2 L
Total Bilirubin 0.6
AST 125 H
ALT 114 H
Alkaline Phosphatase 49
Vital Signs:
Vital Signs
Temp Pulse Resp BP Pulse Ox
98.4 F 90 18 102/52 97
01/05/25 12:00 01/05/25 12:39 01/05/25 12:39 01/05/25 12:39 01/05/25 12:40
I&O
01/04/25 01/05/25 01/06/25
06:59 06:59 06:59
Intake Total 1422.9 / 1541.7 1848.9 / 1848.9 870 / 870
Output Total 865 / 920 1515 / 1565 340 / 340
Balance 557.9 / 621.7 333.9 / 283.9 530 / 530
--- NOTE | 2025-01-05 14:14 | CON.ID ---
Consultation
-
Date/Time Consultation Requested: January 05, 2025
Date/Time Consultation Performed: January 05, 2025 1415
Requesting Provider: CASSIDY Strong
Performing Provider: Dr. Heather Hayward
Reason for Consultation: Antibiotic prophylaxis
Chief Complaint / Past History
Chief Complaint
Fall
History of Present Illness
74-year-old female with history of bilateral total knee replacement who had a mechanical fall January 03, 2025 and presented to the ER the same day due to left knee and right shoulder pain. Imaging showed dislocation of the left knee arthroplasty
and right shoulder. Patient noted to have cool pulseless left lower extremity. CT scan of the leg showed dislocation of the left total knee arthroplasty with posterior displacement, complete occlusion of the popliteal artery. She was taken to the
OR emergently status post closed reduction of the left total knee arthroplasty, and right shoulder. She also underwent left leg thrombectomy, above-knee popliteal artery bypass to below knee popliteal artery bypass, 4 compartment fasciotomies.
Postop she had fever and hypotension due to hemorrhagic shock, now resolved. Vascular is requesting prophylactic antibiotic due to open fasciotomy with underlying prosthetic graft. Patient reports anaphylactic allergy with penicillin when she was
a child. She had tolerated cephalexin in the past. Also she received cefazolin preop prior without adverse reaction. She is feeling better today.
Past History
Additional Past Medical History:
Osteoarthritis
Additional Past Surgical History:
Right total knee arthroplasty.
Left total knee arthroplasty
Appendectomy
Cholecystectomy
Right rotator cuff repair
Achilles tendon repair
Allergy History:
Penicillins Allergy (Verified 08/25/23 09:32)
Anaphylaxis
tetracycline Allergy (Verified 08/25/23 09:32)
itching and rash
seasonal Allergy (Uncoded 08/25/23 09:32)
stuffy nose
Medications Reviewed: Yes
Current Antibiotics:
Vancomycin
Social History
Tobacco: Non-Smoker
Alcohol: None
Drug: None
Family History
Family History: Not Pertinent
Review of Systems
Review of Systems
General: Negative Change in Appetite
HEENT: Negative Sinus Problems or Headache
Respiratory: Negative Dyspnea or Cough
Gasteroenterology: Negative Nausea, Vomiting or Diarrhea
Genital / Urological: Negative Dysuria or Flank Pain
Endocrine: Weakness
All systems: All other systems were reviewed and were negative
Vital Signs
Temp Pulse Resp BP Pulse Ox
98.4 F 90 18 102/52 97
01/05/25 12:00 01/05/25 12:39 01/05/25 12:39 01/05/25 12:39 01/05/25 12:40
Physical Exam
Physical Exam
Constitutional: No Acute Distress and Comfortable
Cardiovascular: Regular Rate and S1/S2
Gastrointestinal: Soft, Non Tender, Non Distended and Normal Bowel Sounds
Genito-Urinary: Negative CVA Tenderness
Extremities: Edema (LLE)
Wound: Other (LLE wound vac in place; Forehead lacerations with sutures in place)
Neurological: AO x 3
Lab / Diagnostic Study Results
01/05/25 03:42
01/05/25 03:42
Abs Immat Gran (auto) 0.0 10^3/uL (0-0.05) 01/05/25 03:42
Absolute Neuts (auto) 4.2 10^3/uL (1.4-6.5) 01/05/25 03:42
Absolute Lymphs (auto) 1.6 10^3/uL (1.2-3.4) 01/05/25 03:42
Absolute Monos (auto) 1.0 10^3/uL (0.1-0.6) H 01/05/25 03:42
Absolute Basos (auto) 0.0 10^3/uL (0-0.2) 01/05/25 03:42
Immature Gran % 0.3 % (0-0.5) 01/05/25 03:42
Neutrophils % 60.8 % (42.2-75.2) 01/05/25 03:42
Lymphocytes % 23.6 % (20.5-51.1) 01/05/25 03:42
Monocytes % 14.5 % (1.7-9.3) H 01/05/25 03:42
Eosinophils % 0.4 % (0-6) 01/05/25 03:42
Basophils % 0.4 % (0-2) 01/05/25 03:42
PT 15.3 Sec (11.4-14.6) H 01/03/25 21:34
INR 1.18 01/03/25 21:34
Microbiology Results
01/03/25 CT LLE: There is a dislocation of the left total knee arthroplasty with posterior displacement of the femoral component relative to the tibial component. While evaluation is limited secondary to streak artifact there appears to be complete
occlusion of the popliteal artery with distal reconstitution. On the delayed images there is increased reconstitution of the popliteal artery with associated high-grade stenosis of the reconstituted segment concerning for dissection.
There is single vessel runoff at the level of the ankle via the posterior tibial artery.
Assessment / Plan
# Critical L limb ischemia due to dislocated Left knee TKA
.s/p thrombectomy, above to below popliteal bypass 01/03
. s/p LLE 4 compartment open fasciotomy
# Dislocated L TKA post fall
. S/p closed reduction 01/03
# Dislocated right shoulder post fall
. s/p closed reduction 01/03
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
. She tolerated cephalexin in the past
- Vascular requesting prophylactic abx given open fasciotomy sites with underlying prosthetic graft
-DC Vancomycin.
- Use cefazolin 1g IV q8h.
--- NOTE | 2025-01-05 14:22 | WOUNDNOTE ---
KIKO RN NOTE: Reviewed vascular note, wound vac dressing applied by CASSIDY Arango to fasciotomy sites, vascular to change Saturday and reassess. Will update [employer] website with vac information and assist as needed.
[2025-01-05] MEDS: ANCEF 5 IV (23:07)
[2025-01-06] VITALS (7 sets, daily range): BP systolic 98–116; BP diastolic 52–71; PULSE 75; O2SAT 97
[2025-01-06] MEDS: TYLENOL 650 MG PO ×4 (04:16→23:01)
[2025-01-06] MEDS: ANCEF 5 IV ×3 (06:21→23:01)
[2025-01-06 06:45] LABS: Hematocrit 19.2 % (37.0-47.0); Hemoglobin 6.4 g/dL (12.0-16.0); Mean Corp Hgb Conc. 33.3 g/dL (33.0-37.0); Mean Corpuscular Volume 94.1 fL (81.0-99.0); Nucleated Red Blood Cells % 0 %; Platelet Count 99 10^3/uL (130-400); Red Cell Dist. Width 12.5 % (11.5-14.5)
--- NOTE | 2025-01-06 06:57 | W.PN.UPDATE ---
Update Note
Progress Note Update
Hgb level is 6.4 this am, no signs of bleeding. One unit of blood ordered.
[2025-01-06 06:59] LABS: ALT (SGPT) 67 U/L (0-35); AST (SGOT) 62 U/L (14-36); Albumin 2.7 g/dl (3.5-5.0); Alkaline Phosphatase 58 U/L (38-126); Blood Urea Nitrogen 8 mg/dl (7-17); Calcium 8.2 mg/dl (8.4-10.2); Carbon Dioxide 27 mmol/L (22-30); Chloride 108 mmol/L (98-107); Estimated Creatinine Clearance 79 ml/min; Glucose 90 mg/dl (70-99); Potassium 3.5 mmol/L (3.5-5.1); Sodium 136 mmol/L (135-145); Total Protein 4.4 g/dl (6.3-8.2); eGFR > 60.00
[2025-01-06] MEDS: LEXAPRO 20 MG PO (08:21)
[2025-01-06] MEDS: PEPCID 20 MG PO ×2 (08:21→20:32)
[2025-01-06] MEDS: LIPITOR 10 MG PO (08:21)
[2025-01-06] MEDS: CLARITIN 10 MG PO (08:21)
[2025-01-06] MEDS: MIRALAX 17 GRAMS PO ×2 (08:22→20:32)
[2025-01-06 09:31] LABS: Total Iron Binding Capacity 190 ug/dl (265-497)
[2025-01-06 09:35] LABS: Iron < 20 ug/dl (37-170)
[2025-01-06 11:49] LABS: Ferritin 120.0 ng/ml (11.1-264.0)
--- NOTE | 2025-01-06 12:11 | W.PN.HOSP.TC ---
Today's Communication/Plan
-
Monitor vitals
See plan
Transfuse PRBC, repeat H&H later today
Wound VAC per vascular
Assessment / Plan
Assessment / Plan
General: Well Developed, Well Nourished and No Apparent Distress
HEENT: NormoCephalic, Moist mucous membranes and Atraumatic
Respiratory: Clear
Cardiac: S1/S2 and Regular Rhythm; No Murmur or Rub
GI: Soft, Non Tender, Non Distended and Normal Bowel Sounds
Musculoskeletal: Edema, R wrist drop with digit extensor and flexor weakness. Numbness in distal digits.
Knee braced.
Neuro: Nonfocal/grossly intact
Dislocation of left total knee arthroplasty with complete occlusion of the popliteal artery with distal reconstitution/dissection
s/p Left BK Pop/AT/PT Thrombectomy
s/p Left Leg Above Knee Popliteal artery bypass to below knee popliteal artery bypass
s/p Ligation of Left Popliteal Vein
s/p Left Leg 4 compartment Fasciotomies
# Ambulatory dysfunction with mechanical fall
post Op acute hemorrhagic shock secondary to acute blood loss; started levophed, now off. Continue with neurovascular checks
Wound VAC placed to left lower extremity medial and lateral fasciotomy site by vascular. Reevaluation on Saturday and reassess if closure of fasciotomies can be achieved. Also started on antibiotics; ID following
-As per CT angiogram of left lower extremity
- Now off heparin drip, anticoagulation per vascular
-Continue aspirin, statin
s/p closed reduction right shoulder and left knee by ortho
NWB to RUE; weightbearing as tolerated with knee immobilizer on left lower extremity
P/OT per ortho and vascular.
cw pain control
- Pelvic x-ray negative
On as needed midodrine
Anemia, likely acute blood loss from recent procedure
Continue to monitor
1 unit prbc 01/06; monitor. repeat H/H later today
Iron deficiency anemia, start IV iron
Thrombocytopenia
Monitor
Elevated LFTs
Likely secondary to hypotension
Continue to monitor
# Right shoulder anterior dislocation
- s/p closed reduction
# Forehead laceration
- CT head shows no acute abnormality
History of right rotator cuff injury status post surgery in 2019
History of left rotator cuff injury managed conservatively
- Plan for shoulder replacement in the near future
Osteoarthritis
GERD
Hypercholesteremia
Migraine
Anxiety/depression
Full code
DVT prophylaxis�per vascular
I spent a total of 53 minutes with the patient or on the floor. More than 50% of this time involved counseling and coordination of care.
Anticipated Discharge: > 48 hours
Subjective/Interval History
-
Date of Service: January 06, 2025
denies nausea
Objective Data
-
Labs:
Laboratory Results
01/06/25 01/06/25 01/06/25
05:17 13:00 14:00
WBC 5.2
Hgb 6.4 L* Cancelled Pending
Hct 19.2 L* Cancelled Pending
Plt Count 99 L
Sodium 136
Potassium 3.5
Chloride 108 H
Carbon Dioxide 27
BUN 8
Creatinine 0.5 L
Glucose 90
Calcium 8.2 L
Total Bilirubin 0.5
AST 62 H
ALT 67 H
Alkaline Phosphatase 58
Vital Signs:
Vital Signs
Temp Pulse Resp BP Pulse Ox
98.6 F 77 16 115/59 98
01/06/25 11:27 01/06/25 11:27 01/06/25 11:27 01/06/25 11:27 01/06/25 11:27
I&O
01/05/25 01/06/25 01/07/25
06:59 06:59 06:59
Intake Total 1848.9 / 1848.9 1590 / 1590
Output Total 1515 / 1565 555 / 555
Balance 333.9 / 283.9 1035 / 1035
[2025-01-06 12:21] LABS: Folate 6.2 ng/ml (2.76-20); Vitamin B12 174 pg/ml (239-931)
--- NOTE | 2025-01-06 13:55 | CM ---
CM following re: discharge planning.
Reviewed pt's chart, met with pt.
Pt is POD#3 closed reduction right shoulder and left knee; left popliteal bypass graft. Continue supportive care.
PT and OT evaluations noted - SNF level of carte recommended. Pt is aware, expressed her agreement with rehab level of care and pt made a strong request for [facility]. CM explained to the pt admiring criteria for an acute level of rehab and
pt is insisted [facility]. As alternative SNF level of care discussed with the pt, pt expressed her agreement and following SNFs requested: [facility], [facility], [facility].
A referral to [facility] and above SNFs made. Awaiting for determination.
D/C plan: Plan A: [facility]. Alternative Plan B: preferred SNF.
CM will follow to assist pt with discharge plan updates as hospitalization progresses
[2025-01-06] MEDS: FERRLECIT 110 MG IV (14:20)
[2025-01-06] MEDS: DILAUDID 0.5 MG IV ×2 (14:27→20:32)
--- NOTE | 2025-01-06 14:31 | W.PN.ID1 ---
Date of Service
Date of Service: January 06, 2025
Today's Communication
Continue cefazolin.
Assessment / Plan
# Critical L limb ischemia due to dislocated Left knee TKA
.s/p thrombectomy, above to below popliteal bypass 01/03
. s/p LLE 4 compartment open fasciotomy
# Dislocated L TKA post fall
. S/p closed reduction 01/03
# Dislocated right shoulder post fall
. s/p closed reduction 01/03
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
. She tolerated cephalexin in the past
- Vascular requesting prophylactic abx given open fasciotomy sites with underlying prosthetic graft
- Continue cefazolin 1g IV q8h through delayed wound closure.
Chief Complaint
-: Other (Fasciotomy)
Subjective / Review of Systems
Tolerating cefazolin. Feels well.
Vital Signs / Physical Exam
Vital Signs
Vital Signs
Temp Pulse Resp BP Pulse Ox
98.6 F 77 16 115/59 98
01/06/25 11:27 01/06/25 11:27 01/06/25 11:27 01/06/25 11:27 01/06/25 11:27
Physical Exam
Constitutional: No Acute Distress and Comfortable
Cardiovascular: Regular Rate and S1/S2
Pulmonary: Clear
Gastrointestinal: Soft, Non Tender, Non Distended and Normal Bowel Sounds
Genito-Urinary: Negative CVA Tenderness
Wound: Other (LLE dressing with immoblizer)
Neurological: AO x 3
Objective Data
Lab Data
Lab Results
01/06/25 05:17
PT 15.3 Sec (11.4-14.6) H 01/03/25 21:34
INR 1.18 01/03/25 21:34
APTT 25.5 Sec (23.4-35.0) 01/03/25 21:34
APTT Cancelled 01/03/25 21:34
Estimated Creat Clear 79 ml/min 01/06/25 05:17
Total Bilirubin 0.5 mg/dl (0.2-1.3) 01/06/25 05:17
AST 62 U/L (14-36) H 01/06/25 05:17
ALT 67 U/L (0-35) H 01/06/25 05:17
Alkaline Phosphatase 58 U/L (38-126) 01/06/25 05:17
Most recent labs reviewed.
01/03/25 CT LLE: There is a dislocation of the left total knee arthroplasty with posterior displacement of the femoral component relative to the tibial component. While evaluation is limited secondary to streak artifact there appears to be complete
occlusion of the popliteal artery with distal reconstitution. On the delayed images there is increased reconstitution of the popliteal artery with associated high-grade stenosis of the reconstituted segment concerning for dissection.
There is single vessel runoff at the level of the ankle via the posterior tibial artery.
[2025-01-06 14:40] LABS: Hematocrit 24.5 % (37.0-47.0); Hemoglobin 8.7 g/dL (12.0-16.0)
[2025-01-06] MEDS: CYANOCOBALAMIN 1000 MCG IM (16:38)
--- NOTE | 2025-01-06 17:33 | PTCARENOTE ---
Wound vac canister changed. 400 ml output serosanguineous drainage noted.
[2025-01-07 03:23] VITALS: BP 116/58
[2025-01-07] MEDS: TYLENOL 650 MG PO (05:19)
[2025-01-07] MEDS: ANCEF 5 IV ×3 (05:19→22:47)
[2025-01-07 07:15] LABS: ALT (SGPT) 42 U/L (0-35); AST (SGOT) 43 U/L (14-36); Albumin 2.8 g/dl (3.5-5.0); Alkaline Phosphatase 63 U/L (38-126); Blood Urea Nitrogen 7 mg/dl (7-17); Calcium 8.2 mg/dl (8.4-10.2); Carbon Dioxide 28 mmol/L (22-30); Chloride 110 mmol/L (98-107); Estimated Creatinine Clearance 79 ml/min; Glucose 96 mg/dl (70-99); Potassium 3.5 mmol/L (3.5-5.1); Sodium 138 mmol/L (135-145); Total Protein 4.6 g/dl (6.3-8.2); eGFR > 60.00
[2025-01-07 07:16] LABS: Hematocrit 23.3 % (37.0-47.0); Hemoglobin 8.0 g/dL (12.0-16.0); Mean Corp Hgb Conc. 34.3 g/dL (33.0-37.0); Mean Corpuscular Volume 92.1 fL (81.0-99.0); Nucleated Red Blood Cells % 0 %; Platelet Count 151 10^3/uL (130-400); Red Cell Dist. Width 12.7 % (11.5-14.5)
[2025-01-07 07:39] VITALS: BP 110/66
[2025-01-07] MEDS: LEXAPRO 20 MG PO (08:36)
[2025-01-07] MEDS: PEPCID 20 MG PO ×2 (08:36→20:00)
[2025-01-07] MEDS: MIRALAX 17 GRAMS PO ×2 (08:37→20:00)
[2025-01-07] MEDS: CYANOCOBALAMIN 1000 MCG IM (08:37)
[2025-01-07] MEDS: CLARITIN 10 MG PO (08:37)
[2025-01-07] MEDS: LIPITOR 10 MG PO (08:37)
--- NOTE | 2025-01-07 11:18 | W.PN.VS ---
Addendum entered and electronically signed by Nikunj Pitts MD 01/07/25 13:33:
Seen and examined with PANTRY STEWARD/STEWARDESS. Agree with findings as noted below. Left foot is warm with easily palpable DP pulse. Wound VAC in place on the calf with Qamar wrap in place. No blood staining, dressing is clean dry intact. Plan/as discussed and noted
below.
Original Note:
Today's Communication / Plan
-
Patient seen and examined at bedside with Dr. Nikunj Pitts, below plan reviewed with attending.
Assessment/Plan
-
POD 4
Left Leg Diagnostic Angiogram
Left BK Pop/AT/PT Thrombectomy
Left Leg Above Knee Popliteal artery bypass to below knee popliteal artery bypass
Ligation of Left Popliteal Vein
Left Leg 4 compartment Fasciotomies
Plan:
Continue wound vac, NPO at midnight for possible OR tomorrow to close fasciotomy site
Continue neurovascular checks
Remainder of care per ortho/primary service
Subjective Data
-
Date of Service: January 07, 2025
Patient seen and examined at bedside, reports continued weakness to RUE wrist and left foot from nerve injury. Tolerating PO diet and reports well managed post oeprative pain.
Objective Data
-
Vital Signs
Temp Pulse Resp BP Pulse Ox
98.2 F 70 16 110/66 98
01/07/25 07:39 01/07/25 07:39 01/07/25 07:39 01/07/25 07:39 01/07/25 07:39
Intake and Output
01/06/25 01/07/25 01/08/25
06:59 06:59 06:59
Intake Total 1590 / 1590 770 / 770
Output Total 555 / 555
Balance 1035 / 1035 770 / 770
Intake:
Oral fluids 1440 / 1440 300 / 300
IV piggybacks 150 / 150 170 / 170
Blood products 300 / 300
Output:
Urine, [place] 555 / 555
Other:
Number of approximated MODERATE 2 1
amounts of urine
Number of approximated LARGE 1
amounts of urine
Lab Results
01/07/25 06:19
01/07/25 06:19
Calcium 8.2 mg/dl (8.4-10.2) L 01/07/25 06:19
Phosphorus 4.7 mg/dl (2.5-4.5) H 01/03/25 21:34
Magnesium 2.0 mg/dl (1.6-2.3) 01/03/25 21:34
Total Bilirubin 0.5 mg/dl (0.2-1.3) 01/07/25 06:19
AST 43 U/L (14-36) H 01/07/25 06:19
ALT 42 U/L (0-35) H 01/07/25 06:19
Alkaline Phosphatase 63 U/L (38-126) 01/07/25 06:19
Total Protein 4.6 g/dl (6.3-8.2) L 01/07/25 06:19
Albumin 2.8 g/dl (3.5-5.0) L 01/07/25 06:19
Physical Exam
-
AAOx3
No tachypnea on RA
No tachycardia
ABD soft
LLE wrapped in QAMAR with wound vac and CDI holding suction, knee brace intact
Foot warm, pink, DP+1 palpable
Left great toe hyperextened, can move slightly. slight decreased sensation on the plantar surface
[2025-01-07 11:19] VITALS: BP 120/66
--- NOTE | 2025-01-07 11:49 | W.PN.HOSP.TC ---
Today's Communication/Plan
-
Monitor vital signs see plan
Repeat H&H later today
Continue with IV iron, vitamin B12
OR tomorrow by vascular
abx
Assessment / Plan
Assessment / Plan
General: Well Developed, Well Nourished and No Apparent Distress
HEENT: NormoCephalic, Moist mucous membranes and Atraumatic
Respiratory: Clear
Cardiac: S1/S2 and Regular Rhythm; No Murmur or Rub
GI: Soft, Non Tender, Non Distended and Normal Bowel Sounds
Musculoskeletal: Edema, R wrist drop with digit extensor and flexor weakness. Numbness in distal digits.
Knee braced.
Neuro: Nonfocal/grossly intact
Dislocation of left total knee arthroplasty with complete occlusion of the popliteal artery with distal reconstitution/dissection
s/p Left BK Pop/AT/PT Thrombectomy
s/p Left Leg Above Knee Popliteal artery bypass to below knee popliteal artery bypass
s/p Ligation of Left Popliteal Vein
s/p Left Leg 4 compartment Fasciotomies
# Ambulatory dysfunction with mechanical fall
post Op acute hemorrhagic shock secondary to acute blood loss; started levophed, now off. Continue with neurovascular checks
Wound VAC placed to left lower extremity medial and lateral fasciotomy site by vascular. Reevaluation on Saturday and reassess if closure of fasciotomies can be achieved. Also started on antibiotics; ID following given open fasciotomy sites with
underlying prosthetic graft
-As per CT angiogram of left lower extremity
- Now off heparin drip, anticoagulation per vascular
-Continue aspirin, statin
s/p closed reduction right shoulder and left knee by ortho
NWB to RUE; weightbearing as tolerated with knee immobilizer on left lower extremity
P/OT per ortho and vascular.
cw pain control
- Pelvic x-ray negative
On as needed midodrine
Anemia, likely acute blood loss from recent procedure
Continue to monitor
1 unit prbc 01/06; monitor. repeat H/H later today. Hemoglobin now 8
Iron deficiency anemia, start IV iron
Vitamin B12 deficiency
Replete
Thrombocytopenia
Monitor
Elevated LFTs
Likely secondary to hypotension
Continue to monitor
# Right shoulder anterior dislocation
- s/p closed reduction
Management per orthopedic
# Forehead laceration
- CT head shows no acute abnormality
History of right rotator cuff injury status post surgery in 2019
History of left rotator cuff injury managed conservatively
- Plan for shoulder replacement in the near future
Osteoarthritis
GERD
Hypercholesteremia
Migraine
Anxiety/depression
Full code
DVT prophylaxis�per vascular
Anticipated Discharge: > 48 hours
Subjective/Interval History
-
Date of Service: January 07, 2025
Denies nausea
Objective Data
-
Labs:
Laboratory Results
01/07/25
06:19
WBC 4.9
Hgb 8.0 L
Hct 23.3 L
Plt Count 151 D
Sodium 138
Potassium 3.5
Chloride 110 H
Carbon Dioxide 28
BUN 7
Creatinine 0.5 L
Glucose 96
Calcium 8.2 L
Total Bilirubin 0.5
AST 43 H
ALT 42 H
Alkaline Phosphatase 63
Vital Signs:
Vital Signs
Temp Pulse Resp BP Pulse Ox
97.5 F 74 16 120/66 99
01/07/25 11:19 01/07/25 11:19 01/07/25 11:19 01/07/25 11:19 01/07/25 11:19
I&O
01/06/25 01/07/25 01/08/25
06:59 06:59 06:59
Intake Total 1590 / 1590 770 / 770
Output Total 555 / 555
Balance 1035 / 1035 770 / 770
--- NOTE | 2025-01-07 12:43 | CM ---
CM following re: discharge planning.
Reviewed pt's chart, met with pt.
Pt is POD#4 closed reduction right shoulder and left knee; left popliteal bypass graft. Continue supportive care.
CM spoke to [facility] worker and she confirmed that pt is accepted for admission to [facility] when medically stable.
Pt is aware and expressed her great satisfaction with discharge plan outcome.
D/C plan: Plan A: [facility].
CM will follow to assist pt with discharge to [facility]
--- NOTE | 2025-01-07 13:10 | W.PN.ID1 ---
Date of Service
Date of Service: January 07, 2025
Today's Communication
Continue cefazolin.
Assessment / Plan
# Critical L limb ischemia due to dislocated Left knee TKA
.s/p thrombectomy, above to below popliteal bypass 01/03
. s/p LLE 4 compartment open fasciotomy
# Dislocated L TKA post fall
. S/p closed reduction 01/03
# Dislocated right shoulder post fall
. s/p closed reduction 01/03
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
. She tolerated cephalexin in the past
- Vascular requesting prophylactic abx given open fasciotomy sites with underlying prosthetic graft
- Continue cefazolin 1g IV q8h through delayed wound closure, possibley tomorrow.
Chief Complaint
-: Other (Fasciotomy)
Subjective / Review of Systems
No complaints. No diarrhea.
Vital Signs / Physical Exam
Vital Signs
Vital Signs
Temp Pulse Resp BP Pulse Ox
97.5 F 74 16 120/66 99
01/07/25 11:19 01/07/25 11:19 01/07/25 11:19 01/07/25 11:19 01/07/25 11:19
Physical Exam
Constitutional: No Acute Distress and Comfortable
Cardiovascular: Regular Rate and S1/S2
Pulmonary: Clear
Gastrointestinal: Soft, Non Tender, Non Distended and Normal Bowel Sounds
Genito-Urinary: Negative CVA Tenderness
Wound: Other (LLE dressing with immoblizer)
Neurological: AO x 3
Objective Data
Lab Data
Lab Results
01/07/25 06:19
PT 15.3 Sec (11.4-14.6) H 01/03/25 21:34
INR 1.18 01/03/25 21:34
APTT 25.5 Sec (23.4-35.0) 01/03/25 21:34
APTT Cancelled 01/03/25 21:34
Estimated Creat Clear 79 ml/min 01/07/25 06:19
Total Bilirubin 0.5 mg/dl (0.2-1.3) 01/07/25 06:19
AST 43 U/L (14-36) H 01/07/25 06:19
ALT 42 U/L (0-35) H 01/07/25 06:19
Alkaline Phosphatase 63 U/L (38-126) 01/07/25 06:19
Most recent labs reviewed.
01/03/25 CT LLE: There is a dislocation of the left total knee arthroplasty with posterior displacement of the femoral component relative to the tibial component. While evaluation is limited secondary to streak artifact there appears to be complete
occlusion of the popliteal artery with distal reconstitution. On the delayed images there is increased reconstitution of the popliteal artery with associated high-grade stenosis of the reconstituted segment concerning for dissection.
There is single vessel runoff at the level of the ankle via the posterior tibial artery.
[2025-01-07] MEDS: FERRLECIT 110 MG IV (14:03)
[2025-01-07 14:59] VITALS: BP 129/71
[2025-01-07] MEDS: DILAUDID 0.5 MG IV ×2 (15:08→18:31)
[2025-01-07 19:10] VITALS: BP 114/56
[2025-01-07 20:31] LABS: Hematocrit 24.0 % (37.0-47.0); Hemoglobin 8.4 g/dL (12.0-16.0)
[2025-01-07 23:09] VITALS: BP 109/59
[2025-01-08] MEDS: TYLENOL 650 MG PO ×3 (02:01→22:10)
[2025-01-08 03:05] VITALS: BP 111/52
[2025-01-08] MEDS: ANCEF 5 IV ×2 (06:05→14:16)
[2025-01-08 07:30] LABS: Hematocrit 24.0 % (37.0-47.0); Hemoglobin 8.3 g/dL (12.0-16.0); Mean Corp Hgb Conc. 34.6 g/dL (33.0-37.0); Mean Corpuscular Volume 92.3 fL (81.0-99.0); Nucleated Red Blood Cells % 0 %; Platelet Count 193 10^3/uL (130-400); Red Cell Dist. Width 12.8 % (11.5-14.5)
[2025-01-08 07:37] VITALS: BP 122/73
[2025-01-08 07:38] LABS: ALT (SGPT) 32 U/L (0-35); AST (SGOT) 35 U/L (14-36); Albumin 2.9 g/dl (3.5-5.0); Alkaline Phosphatase 67 U/L (38-126); Blood Urea Nitrogen 8 mg/dl (7-17); Calcium 8.4 mg/dl (8.4-10.2); Carbon Dioxide 29 mmol/L (22-30); Chloride 108 mmol/L (98-107); Estimated Creatinine Clearance 79 ml/min; Glucose 96 mg/dl (70-99); Potassium 3.5 mmol/L (3.5-5.1); Sodium 139 mmol/L (135-145); Total Protein 4.7 g/dl (6.3-8.2); eGFR > 60.00
[2025-01-08] MEDS: DILAUDID 0.5 MG IV ×2 (08:14→12:39)
[2025-01-08] MEDS: CYANOCOBALAMIN 1000 MCG IM (08:18)
[2025-01-08] MEDS: PEPCID 20 MG PO ×2 (08:19→20:49)
[2025-01-08] MEDS: LIPITOR 10 MG PO (08:19)
[2025-01-08] MEDS: LEXAPRO 20 MG PO (08:19)
[2025-01-08] MEDS: CLARITIN 10 MG PO (08:19)
[2025-01-08] MEDS: MIRALAX 17 GRAMS PO ×2 (08:19→20:49)
--- NOTE | 2025-01-08 08:55 | W.PN.VS ---
Today's Communication / Plan
-
See below
Assessment/Plan
-
POD 5
Left Leg Diagnostic Angiogram
Left BK Pop/AT/PT Thrombectomy
Left Leg Above Knee Popliteal artery bypass to below knee popliteal artery bypass
Ligation of Left Popliteal Vein
Left Leg 4 compartment Fasciotomies
Plan:
Replaced wound VAC with 7-day wound VAC, replaced Qamar wrap for edema-all feels soft
Knee immobilizer replaced
Remainder of care per ortho/primary service
Okay for transition to [facility] from vascular standpoint
Subjective Data
-
Date of Service: January 08, 2025
Patient seen at bedside this a.m. Patient offers no complaints at this time. No events overnight. VAC is intact with no leak.
Objective Data
-
Vital Signs
Temp Pulse Resp BP Pulse Ox
98 F 72 16 122/73 98
01/08/25 07:37 01/08/25 07:37 01/08/25 07:37 01/08/25 07:37 01/08/25 07:37
Intake and Output
01/07/25 01/08/25 01/09/25
06:59 06:59 06:59
Intake Total 770 / 770 1490 / 1490
Balance 770 / 770 1490 / 1490
Intake:
Oral fluids 300 / 300 1320 / 1320
IV piggybacks 170 / 170 170 / 170
Blood products 300 / 300
Other:
Number of approximated MODERATE 1
amounts of urine
Number of approximated LARGE 1 3
amounts of urine
Lab Results
01/08/25 06:53
01/08/25 06:53
Calcium 8.4 mg/dl (8.4-10.2) 01/08/25 06:53
Phosphorus 4.7 mg/dl (2.5-4.5) H 01/03/25 21:34
Magnesium 2.0 mg/dl (1.6-2.3) 01/03/25 21:34
Total Bilirubin 0.7 mg/dl (0.2-1.3) 01/08/25 06:53
AST 35 U/L (14-36) 01/08/25 06:53
ALT 32 U/L (0-35) 01/08/25 06:53
Alkaline Phosphatase 67 U/L (38-126) 01/08/25 06:53
Total Protein 4.7 g/dl (6.3-8.2) L 01/08/25 06:53
Albumin 2.9 g/dl (3.5-5.0) L 01/08/25 06:53
Physical Exam
-
AAOx3
No tachypnea on RA
No tachycardia
ABD soft
LLE wrapped in QAMAR with wound vac and CDI holding suction, knee brace intact
Foot warm, pink, DP+1 palpable
Left great toe hyperextened, can move slightl
--- NOTE | 2025-01-08 08:58 | W.PN.UPDATE ---
Update Note
Progress Note Update
Wound measurements:
Lateral: 15 x 10 x 0.5
Medial: 13 x 9 x 0.5
--- NOTE | 2025-01-08 11:20 | CM ---
Addendum entered by Loyd Finnegan 01/08/25 15:45:
According to pt will be ready for discharge on the weekend.
CM spoke to [facility] team lead and she confirmed they do not have available on the weekend and will have a bed available possibly on Saturday.
Original Note:
CM following re: discharge planning.
Reviewed pt's chart, met with pt.
Pt is POD#5 closed reduction right shoulder and left knee; left popliteal bypass graft. Continue supportive care.
PT and OT continue recommending acute rehab level of care.
[facility] team lead following.
D/C plan: Plan A: [facility].
CM will follow to assist pt with discharge to [facility]
--- NOTE | 2025-01-08 12:20 | W.PN.ORTHO ---
Today's Communication / Plan
-
Patient underwent right shoulder closed reduction and does have neuropraxia involving radial and ulnar nerve. This seems to be improving. She may utilize sling for comfort and work on range of motion of the right upper extremity. Continue to
observe for now and follow-up with Dr. Santana in 2 weeks. Closed reduction left total knee arthroplasty but popliteal artery injury requiring bypass and fasciotomy. Right now obviously awaiting decrease swelling so fasciotomy could be closed. She
does have neuropraxia noted in the left lower extremity so observe for now. Continue nonweightbearing left lower extremity with knee immobilizer. On the x-ray earlier this week it does appear to have subtle fracture involving the femoral component
so I am going to order CT scan to better evaluate. She should follow-up with Dr. Turpin to review CT scan within the next 1 to 2 weeks.
Plan
.
Surgery / Date: Closed reduction right shoulder and left knee
Activity:
Out of bed.
PT/OT
Subjective
.
.:
Patient resting comfortably.
Right shoulder seems doing much better. Range of motion is improving and pain resolving nicely. She has not been using the sling. Knee immobilizer for left lower extremity tolerated. Wound VAC being placed vascular surgery to hopefully reduce
edema and be able to close the fasciotomy. Numbness still present along the plantar aspect of the left foot.
Vital Signs and Labs
.
Vital Signs and Labs:
Lab Results
01/08/25 06:53
01/08/25 06:53
Temp Pulse Resp BP Pulse Ox
98 F 72 16 122/73 98
01/08/25 07:37 01/08/25 07:37 01/08/25 07:37 01/08/25 07:37 01/08/25 07:37
PT 15.3 Sec (11.4-14.6) H 01/03/25 21:34
INR 1.18 01/03/25 21:34
3 views of the left knee January 04, 2025 show stable appearing left total knee replacement. Just above the femoral component on the anterior cortex of the femur there does appear to be subtle fracture.
Physical Exam
-
Right shoulder minimal edema without ecchymosis. Mild discomfort noted. She is able to elevate to 90 degrees externally rotate 40 degrees and internal rotation 30 degrees all without pain. No gross rotator cuff weakness noted. She relates that
there is still some tingling in her forearm. She is unable to flex her thumb. She is able to extend the wrist and spread her fingers apart. It is very weak for extension at the MCP joint. Left lower extremity edema noted and knee immobilizer in
place. The left great toe which was hyperextended last time I saw her has relaxed. There is numbness along the forefoot of the plantar aspect of the foot. No numbness along the dorsal aspect of the foot. EHL strength 4+/5. Dorsiflexion 1+/5 of
the foot.
--- NOTE | 2025-01-08 12:56 | W.PN.HOSP.TC ---
Today's Communication/Plan
-
Monitor vital signs see plan
Continue with wound VAC per vascular
Discussed with vascular, ordered Lovenox for DVT prophylaxis
Continue with antibiotics per ID
Discharge planning
Assessment / Plan
Assessment / Plan
General: Well Developed, Well Nourished and No Apparent Distress
HEENT: NormoCephalic, Moist mucous membranes and Atraumatic
Respiratory: Clear
Cardiac: S1/S2 and Regular Rhythm; No Murmur or Rub
GI: Soft, Non Tender, Non Distended and Normal Bowel Sounds
Musculoskeletal: Edema, R wrist drop with digit extensor and flexor weakness. Numbness in distal digits.
Knee braced.
Neuro: Nonfocal/grossly intact
Dislocation of left total knee arthroplasty with complete occlusion of the popliteal artery with distal reconstitution/dissection
s/p Left BK Pop/AT/PT Thrombectomy
s/p Left Leg Above Knee Popliteal artery bypass to below knee popliteal artery bypass
s/p Ligation of Left Popliteal Vein
s/p Left Leg 4 compartment Fasciotomies
# Ambulatory dysfunction with mechanical fall
post Op acute hemorrhagic shock secondary to acute blood loss; started levophed, now off. Continue with neurovascular checks
Wound VAC placed to left lower extremity medial and lateral fasciotomy site by vascular. Reevaluated by vascular surgery. No surgical intervention at this time. Replace wound VAC with 7-day wound VAC. Discharge planing. Also started on
antibiotics; ID following given open fasciotomy sites with underlying prosthetic graft. Defer to vascular surgery and ID regarding duration of antibiotics
-As per CT angiogram of left lower extremity
- Now off heparin drip, anticoagulation per vascular
-Continue aspirin, statin
s/p closed reduction right shoulder and left knee by ortho
NWB to RUE; weightbearing as tolerated with knee immobilizer on left lower extremity
P/OT per ortho and vascular.
cw pain control
- Pelvic x-ray negative
On as needed midodrine
Anemia, likely acute blood loss from recent procedure
Continue to monitor
1 unit prbc 01/06; monitor. Hemoglobin now 8
Iron deficiency anemia, started IV iron
Vitamin B12 deficiency
Replete
Thrombocytopenia
Monitor
Elevated LFTs
Likely secondary to hypotension
Continue to monitor
# Right shoulder anterior dislocation
- s/p closed reduction
Management per orthopedic
# Forehead laceration
- CT head shows no acute abnormality
History of right rotator cuff injury status post surgery in 2019
History of left rotator cuff injury managed conservatively
- Plan for shoulder replacement in the near future
Osteoarthritis
GERD
Hypercholesteremia
Migraine
Anxiety/depression
Full code
DVT prophylaxis�Lovenox Discussed with vascular
I spent a total of 52 minutes with the patient or on the floor. More than 50% of this time involved counseling and coordination of care.
Anticipated Discharge: 24 - 48 hours
Subjective/Interval History
-
Date of Service: January 08, 2025
denies nausea
Objective Data
-
Labs:
Laboratory Results
01/08/25
06:53
WBC 4.4 L
Hgb 8.3 L
Hct 24.0 L
Plt Count 193 D
Sodium 139
Potassium 3.5
Chloride 108 H
Carbon Dioxide 29
BUN 8
Creatinine 0.5 L
Glucose 96
Calcium 8.4
Total Bilirubin 0.7
AST 35
ALT 32
Alkaline Phosphatase 67
Vital Signs:
Vital Signs
Temp Pulse Resp BP Pulse Ox
98 F 72 16 122/73 98
01/08/25 07:37 01/08/25 07:37 01/08/25 07:37 01/08/25 07:37 01/08/25 07:37
I&O
01/07/25 01/08/25 01/09/25
06:59 06:59 06:59
Intake Total 770 / 770 1490 / 1490
Balance 770 / 770 1490 / 1490
[2025-01-08] MEDS: FERRLECIT 110 MG IV (14:09)
--- NOTE | 2025-01-08 14:25 | W.PN.ID1 ---
Date of Service
Date of Service: January 08, 2025
Today's Communication
Can transition prophylactic cefazolin to cephalexin 500mg po qid x 2 weeks through 01/22/25.
ID willl sign off.
Assessment / Plan
# Critical L limb ischemia due to dislocated Left knee TKA
.s/p thrombectomy, above to below popliteal bypass 01/03
. s/p LLE 4 compartment open fasciotomy
# Dislocated L TKA post fall
. S/p closed reduction 01/03
# Dislocated right shoulder post fall
. s/p closed reduction 01/03
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
. She tolerated cephalexin in the past
- Vascular requesting prophylactic abx given open fasciotomy sites with underlying prosthetic graft
- Plan for eventual wound closure when edema resolves.
- Can transition prophylactic cefazolin to cephalexin 500mg po qid x 2 weeks through 01/22/25.
Case discussed with Vascular.
ID will sign off.
Chief Complaint
-: Other (Fasciotomy)
Subjective / Review of Systems
Will be going to rehab.
Vital Signs / Physical Exam
Vital Signs
Vital Signs
Temp Pulse Resp BP Pulse Ox
98 F 72 16 122/73 98
01/08/25 07:37 01/08/25 07:37 01/08/25 07:37 01/08/25 07:37 01/08/25 07:37
Physical Exam
Constitutional: No Acute Distress
Cardiovascular: Regular Rate and S1/S2
Pulmonary: Clear
Gastrointestinal: Soft, Non Tender, Non Distended and Normal Bowel Sounds
Genito-Urinary: Negative CVA Tenderness
Wound: Other (LLE wound vac, dressing )
Neurological: AO x 3
Objective Data
Lab Data
Lab Results
01/08/25 06:53
01/08/25 06:53
PT 15.3 Sec (11.4-14.6) H 01/03/25 21:34
INR 1.18 01/03/25 21:34
APTT 25.5 Sec (23.4-35.0) 01/03/25 21:34
APTT Cancelled 01/03/25 21:34
Estimated Creat Clear 79 ml/min 01/08/25 06:53
Total Bilirubin 0.7 mg/dl (0.2-1.3) 01/08/25 06:53
AST 35 U/L (14-36) 01/08/25 06:53
ALT 32 U/L (0-35) 01/08/25 06:53
Alkaline Phosphatase 67 U/L (38-126) 01/08/25 06:53
Most recent labs reviewed.
01/03/25 CT LLE: There is a dislocation of the left total knee arthroplasty with posterior displacement of the femoral component relative to the tibial component. While evaluation is limited secondary to streak artifact there appears to be complete
occlusion of the popliteal artery with distal reconstitution. On the delayed images there is increased reconstitution of the popliteal artery with associated high-grade stenosis of the reconstituted segment concerning for dissection.
There is single vessel runoff at the level of the ankle via the posterior tibial artery.
Care Review
Plan reviewed with: Physician (Dr. Sandoval )
[2025-01-08 15:00] VITALS: BP 108/67
[2025-01-08] MEDS: ROXICODONE 5 MG PO (16:47)
[2025-01-08] MEDS: LOVENOX 40 MG SC (16:52)
[2025-01-08] MEDS: KEFLEX 500 MG PO (21:56)
[2025-01-08 23:07] VITALS: BP 125/67
[2025-01-08 23:25] VITALS: BP 122/64
[2025-01-09] MEDS: ROXICODONE 5 MG PO ×3 (00:26→20:22)
--- NOTE | 2025-01-09 03:40 | PTCARENOTE ---
2330: Pt arrived from in pt bed. Belongings at bedside. Wound vac in place with approp sucation. knee imobliozer adjusted for approp alignment. KEITH wrap replaced. Pt oriented to room, plan of care reviewed.
0005: Pt reports that she believes she dislocated her right shoulder, c/o inc distal tingling. On assessment pt told RN 'I think it popped back in'. Shoulder placed in neutral position, baseline sensation reported, + radial pulse. Provider made
aware. Shoulder immobilizer applied.
[2025-01-09 06:19] LABS: Hematocrit 24.2 % (37.0-47.0); Hemoglobin 8.2 g/dL (12.0-16.0); Mean Corp Hgb Conc. 33.9 g/dL (33.0-37.0); Mean Corpuscular Volume 91.0 fL (81.0-99.0); Nucleated Red Blood Cells % 0 %; Platelet Count 212 10^3/uL (130-400); Red Cell Dist. Width 12.9 % (11.5-14.5)
[2025-01-09 06:45] LABS: ALT (SGPT) 26 U/L (0-35); AST (SGOT) 30 U/L (14-36); Albumin 2.9 g/dl (3.5-5.0); Alkaline Phosphatase 68 U/L (38-126); Blood Urea Nitrogen 8 mg/dl (7-17); Calcium 8.5 mg/dl (8.4-10.2); Carbon Dioxide 28 mmol/L (22-30); Chloride 108 mmol/L (98-107); Estimated Creatinine Clearance 79 ml/min; Glucose 94 mg/dl (70-99); Potassium 3.6 mmol/L (3.5-5.1); Sodium 138 mmol/L (135-145); Total Protein 4.7 g/dl (6.3-8.2); eGFR > 60.00
[2025-01-09 07:40] VITALS: BP 133/71
[2025-01-09] MEDS: CLARITIN 10 MG PO (08:14)
[2025-01-09] MEDS: LOW STRENGTH ASPIRIN 81 MG PO (08:14)
[2025-01-09] MEDS: LEXAPRO 20 MG PO (08:14)
[2025-01-09] MEDS: PEPCID 20 MG PO ×2 (08:14→20:22)
[2025-01-09] MEDS: LIPITOR 10 MG PO (08:14)
[2025-01-09] MEDS: KEFLEX 500 MG PO ×4 (08:14→20:47)
[2025-01-09] MEDS: CYANOCOBALAMIN 1000 MCG IM (08:15)
[2025-01-09] MEDS: MIRALAX 17 GRAMS PO (08:16)
--- NOTE | 2025-01-09 11:43 | W.PN.HOSP.TC ---
Today's Communication/Plan
-
Monitor vitals
See plan
Pain control
Discharge planning
PT/OT weightbearing status per orthopedics
Monitor hemoglobin
Continue antibiotic
Assessment / Plan
Assessment / Plan
General: Well Developed, Well Nourished and No Apparent Distress
HEENT: NormoCephalic, Moist mucous membranes and Atraumatic
Respiratory: Clear
Cardiac: S1/S2 and Regular Rhythm; No Murmur or Rub
GI: Soft, Non Tender, Non Distended and Normal Bowel Sounds
Musculoskeletal: Edema, R wrist drop with digit extensor and flexor weakness. Numbness in distal digits.
Knee braced.
Neuro: Nonfocal/grossly intact
Dislocation of left total knee arthroplasty with complete occlusion of the popliteal artery with distal reconstitution/dissection
s/p Left BK Pop/AT/PT Thrombectomy
s/p Left Leg Above Knee Popliteal artery bypass to below knee popliteal artery bypass
s/p Ligation of Left Popliteal Vein
s/p Left Leg 4 compartment Fasciotomies
# Ambulatory dysfunction with mechanical fall
post Op acute hemorrhagic shock secondary to acute blood loss; started levophed, now off. Continue with neurovascular checks
Wound VAC placed to left lower extremity medial and lateral fasciotomy site by vascular. Reevaluated by vascular surgery. No surgical intervention at this time. Replace wound VAC with 7-day wound VAC. Discharge planing. Also started on
antibiotics; ID following given open fasciotomy sites with underlying prosthetic graft. Per infectious disease, prophylactic cephalexin 500mg po qid x 2 weeks through 01/22/25
-As per CT angiogram of left lower extremity
-Continue aspirin, statin
s/p closed reduction right shoulder and left knee by ortho
NWB to RUE; nonweightbearing with knee immobilizer on left lower extremity per ortho
CT LE per ortho
Pt/OT per ortho and vascular.
cw pain control
- Pelvic x-ray negative
On as needed midodrine
Anemia, likely acute blood loss from recent procedure
Continue to monitor
1 unit prbc 01/06; monitor. Hemoglobin now 8
Iron deficiency anemia, started IV iron, last day 01/10
Vitamin B12 deficiency
Replete
Thrombocytopenia
Monitor
Elevated LFTs
resolved
# Right shoulder anterior dislocation
- s/p closed reduction
Management per orthopedic
# Forehead laceration
- CT head shows no acute abnormality
History of right rotator cuff injury status post surgery in 2019
History of left rotator cuff injury managed conservatively
- Plan for shoulder replacement in the near future
Osteoarthritis
GERD
Hypercholesteremia
Migraine
Anxiety/depression
Full code
DVT prophylaxis�Lovenox Discussed with vascular
PT/OT recommending acute rehab. Discussed with ed case manager and appears [facility] has a bed on Saturday
Anticipated Discharge: Today
Subjective/Interval History
-
Date of Service: January 09, 2025
Denies nausea
Objective Data
-
Labs:
Laboratory Results
01/09/25
05:59
WBC 4.6 L
Hgb 8.2 L
Hct 24.2 L
Plt Count 212
Sodium 138
Potassium 3.6
Chloride 108 H
Carbon Dioxide 28
BUN 8
Creatinine 0.5 L
Glucose 94
Calcium 8.5
Total Bilirubin 0.8
AST 30
ALT 26
Alkaline Phosphatase 68
Vital Signs:
Vital Signs
Temp Pulse Resp BP Pulse Ox
98.4 F 67 18 133/71 98
01/09/25 07:40 01/09/25 07:40 01/09/25 07:40 01/09/25 07:40 01/09/25 07:40
I&O
01/08/25 01/09/25 01/10/25
06:59 06:59 06:59
Intake Total 1490 / 1490 1380 / 1380
Output Total 750 / 750
Balance 1490 / 1490 630 / 630
--- NOTE | 2025-01-09 12:44 | W.PN.UPDATE ---
Update Note
Progress Note Update
CT scan of left knee completed earlier this morning. This reveals a slightly comminuted and mildly displaced fracture of the anterior cortex of the distal femoral metaphysis 5 mm above the femoral component. 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
Will update weight bearing status for her LLE to be NWB at all times. PT/OT to tolerance.
Updated this afternoon that patient felt she had a recurrent dislocation overnight with increased tingling of upper extremity. She felt as though she reduced this on her own, so sling was placed on upper extremity. Repeat x-rays ordered. Will
keep her NWB for now. May work on ROM to tolerance. Will examine patient in AM to review all ordered imaging and further narrow down activity recommendations going forward.
[2025-01-09] MEDS: VISBIOME 1 CAP PO (12:51)
[2025-01-09] MEDS: FERRLECIT 110 MG IV (14:56)
[2025-01-09] MEDS: FLUSH (NSS) 1 FLUSH IV (14:57)
[2025-01-09 15:20] VITALS: BP 128/77
[2025-01-09] MEDS: LOVENOX 40 MG SC (18:09)
[2025-01-09] MEDS: TYLENOL 650 MG PO (20:21)
[2025-01-09] MEDS: MIRALAX PO (22:08)
[2025-01-09 22:34] VITALS: BP 104/50
[2025-01-10] VITALS (7 sets, daily range): BP systolic 106–131; BP diastolic 55–75; PULSE 69; O2SAT 98
[2025-01-10 06:15] LABS: Blood Urea Nitrogen 8 mg/dl (7-17); Calcium 8.6 mg/dl (8.4-10.2); Carbon Dioxide 28 mmol/L (22-30); Chloride 107 mmol/L (98-107); Estimated Creatinine Clearance 79 ml/min; Glucose 97 mg/dl (70-99); Potassium 3.7 mmol/L (3.5-5.1); Sodium 137 mmol/L (135-145); eGFR > 60.00
[2025-01-10 06:18] LABS: Hematocrit 25.2 % (37.0-47.0); Hemoglobin 8.6 g/dL (12.0-16.0); Mean Corp Hgb Conc. 34.1 g/dL (33.0-37.0); Mean Corpuscular Volume 92.6 fL (81.0-99.0); Nucleated Red Blood Cells % 0 %; Platelet Count 262 10^3/uL (130-400); Red Cell Dist. Width 13.0 % (11.5-14.5)
[2025-01-10] MEDS: MIRALAX PO ×2 (08:42→19:06)
[2025-01-10] MEDS: LIPITOR 10 MG PO (08:43)
[2025-01-10] MEDS: PEPCID 20 MG PO ×2 (08:43→19:07)
[2025-01-10] MEDS: LOW STRENGTH ASPIRIN 81 MG PO (08:43)
[2025-01-10] MEDS: LEXAPRO 20 MG PO (08:43)
[2025-01-10] MEDS: CLARITIN 10 MG PO (08:43)
[2025-01-10] MEDS: VISBIOME 1 CAP PO (08:43)
[2025-01-10] MEDS: KEFLEX 500 MG PO ×4 (08:47→21:03)
[2025-01-10] MEDS: TYLENOL 650 MG PO ×2 (08:56→17:19)
[2025-01-10] MEDS: CYANOCOBALAMIN IM (09:46)
--- NOTE | 2025-01-10 10:13 | W.PN.UPDATE ---
Update Note
Progress Note Update
Yvette is resting comfortably on my arrival. She denies any pain in her left knee or her right upper extremity. She states the night before last, she felt as though her shoulder got stuck and then possibly popped back into place. She has not
had any pain since this happened. She returned to utilizing the sling. She states her nerve symptoms persist, mainly being lack of sensation in her right pinky and somewhat about her forearm. Right shoulder passive forward elevation to 160
degrees without pain, passive external rotation to 30 degrees without pain or instability. Left knee pain has been well-controlled with use of the knee immobilizer. Dressings in place on left lower extremity, these were not removed. Wound VAC in
place.
Right shoulder x-rays from 01/09/2025 shows normal alignment of glenohumeral joint, no dislocation. There are findings consistent with inferior glenoid fracture.
CT scan of the left lower extremity with findings of comminuted, mildly displaced fracture involving the anterior cortex of the distal femoral metaphysis ventilators above the femoral component.
Plan is for discharge to [facility] on Saturday. In regards to her right shoulder, she will maintain the sling, but may remove this to work on gentle range of motion exercises of the shoulder, elbow, wrist, and hand, as well as when she is sedentary
to give her neck a break. Blood pressures and blood draws may be obtained on her right upper extremity. She should remain nonweightbearing on the right upper extremity until follow-up in the office at [address] Santana. She will
continue to utilize the knee immobilizer full-time and remain strict nonweightbearing to her left lower extremity until further follow-up. I will have her follow-up with Dr. Turpin in 4 weeks for repeat x-rays of the left knee.
[2025-01-10] MEDS: VITAMIN B-12 1000 MCG PO (10:20)
--- NOTE | 2025-01-10 11:52 | W.PN.HOSP.TC ---
Today's Communication/Plan
-
Monitor vital signs see plan
Continue vitamin B12
Discharge planning
Pain control
Assessment / Plan
Assessment / Plan
General: Well Developed, Well Nourished and No Apparent Distress
HEENT: NormoCephalic, Moist mucous membranes and Atraumatic
Respiratory: Clear
Cardiac: S1/S2 and Regular Rhythm; No Murmur or Rub
GI: Soft, Non Tender, Non Distended and Normal Bowel Sounds
Musculoskeletal: Edema, R wrist drop with digit extensor and flexor weakness. Numbness in distal digits.
Knee braced.
Neuro: Nonfocal/grossly intact
Dislocation of left total knee arthroplasty with complete occlusion of the popliteal artery with distal reconstitution/dissection
s/p Left BK Pop/AT/PT Thrombectomy
s/p Left Leg Above Knee Popliteal artery bypass to below knee popliteal artery bypass
s/p Ligation of Left Popliteal Vein
s/p Left Leg 4 compartment Fasciotomies
# Ambulatory dysfunction with mechanical fall
post Op acute hemorrhagic shock secondary to acute blood loss; started levophed, now off. Continue with neurovascular checks
Wound VAC placed to left lower extremity medial and lateral fasciotomy site by vascular. Reevaluated by vascular surgery. No surgical intervention at this time. Replace wound VAC with 7-day wound VAC. Discharge planing. Also started on
antibiotics; ID following given open fasciotomy sites with underlying prosthetic graft. Per infectious disease, prophylactic cephalexin 500mg po qid x 2 weeks through 01/22/25
-As per CT angiogram of left lower extremity
-Continue aspirin, statin
s/p closed reduction right shoulder and left knee by ortho
NWB to RUE; nonweightbearing with knee immobilizer on left lower extremity per ortho
CT LE per ortho showed distal femur fracture. Patient to follow-up with orthopedics outpatient
Shoulder x-ray also with inferior glenoid fracture. Ortho following
Pt/OT per ortho
cw pain control
- Pelvic x-ray negative
On as needed midodrine
Anemia, likely acute blood loss from recent procedure
Continue to monitor
1 unit prbc 01/06; monitor. Hemoglobin now 8
Iron deficiency anemia, started IV iron, last day 01/10
Vitamin B12 deficiency
Replete
Thrombocytopenia
Resolved
Elevated LFTs
resolved
# Right shoulder anterior dislocation
- s/p closed reduction
Management per orthopedic
# Forehead laceration
- CT head shows no acute abnormality
History of right rotator cuff injury status post surgery in 2019
History of left rotator cuff injury managed conservatively
- Plan for shoulder replacement in the near future
Osteoarthritis
GERD
Hypercholesteremia
Migraine
Anxiety/depression
Full code
DVT prophylaxis�Lovenox Discussed with vascular
PT/OT recommending acute rehab. Discussed with field case manager and appears [facility] has a bed on Saturday
Anticipated Discharge: Today
Subjective/Interval History
-
Date of Service: January 10, 2025
denies nausea
Objective Data
-
Labs:
Laboratory Results
01/10/25
04:40
WBC 6.0
Hgb 8.6 L
Hct 25.2 L
Plt Count 262 D
Sodium 137
Potassium 3.7
Chloride 107
Carbon Dioxide 28
BUN 8
Creatinine 0.6
Glucose 97
Calcium 8.6
Vital Signs:
Vital Signs
Temp Pulse Resp BP Pulse Ox
98.5 F 66 16 128/61 95
01/10/25 07:54 01/10/25 07:54 01/10/25 07:54 01/10/25 07:54 01/10/25 10:45
I&O
01/09/25 01/10/25 01/11/25
06:59 06:59 06:59
Intake Total 1380 / 1380 1030 / 1030
Output Total 750 / 750
Balance 630 / 630 1030 / 1030
[2025-01-10] MEDS: ROXICODONE 5 MG PO ×2 (14:08→19:07)
[2025-01-10] MEDS: FERRLECIT 110 MG IV (14:50)
[2025-01-10] MEDS: LOVENOX 40 MG SC (17:43)
[2025-01-10] MEDS: AMBIEN 5 MG PO (21:03)
[2025-01-11] MEDS: TYLENOL 650 MG PO ×3 (05:39→21:00)
[2025-01-11 07:10] VITALS: BP 109/64
[2025-01-11 07:27] LABS: Hematocrit 24.9 % (37.0-47.0); Hemoglobin 8.4 g/dL (12.0-16.0); Mean Corp Hgb Conc. 33.7 g/dL (33.0-37.0); Mean Corpuscular Volume 92.2 fL (81.0-99.0); Nucleated Red Blood Cells % 0 %; Platelet Count 284 10^3/uL (130-400); Red Cell Dist. Width 13.3 % (11.5-14.5)
[2025-01-11 07:54] LABS: Blood Urea Nitrogen 8 mg/dl (7-17); Calcium 8.5 mg/dl (8.4-10.2); Carbon Dioxide 27 mmol/L (22-30); Chloride 109 mmol/L (98-107); Estimated Creatinine Clearance 79 ml/min; Glucose 98 mg/dl (70-99); Potassium 3.7 mmol/L (3.5-5.1); Sodium 138 mmol/L (135-145); eGFR > 60.00
[2025-01-11] MEDS: VITAMIN B-12 1000 MCG PO (08:56)
[2025-01-11] MEDS: KEFLEX 500 MG PO ×4 (08:57→21:00)
[2025-01-11] MEDS: LEXAPRO 20 MG PO (08:57)
[2025-01-11] MEDS: PEPCID 20 MG PO ×2 (08:57→21:00)
[2025-01-11] MEDS: VISBIOME 1 CAP PO (08:57)
[2025-01-11] MEDS: LIPITOR 10 MG PO (08:57)
[2025-01-11] MEDS: LOW STRENGTH ASPIRIN 81 MG PO (08:57)
[2025-01-11] MEDS: CLARITIN 10 MG PO (08:57)
[2025-01-11] MEDS: MIRALAX PO ×2 (09:01→19:01)
--- NOTE | 2025-01-11 10:09 | W.PN.UPDATE ---
Update Note
Progress Note Update
Yvette is once again resting comfortably on my arrival today. Reports she has been out of the sling a little bit more in order to feed herself and do some of her daily activities. She has remained nonweightbearing on the right upper extremity.
She denies any recurrent subluxation episodes of her right shoulder. Neurovascular status remains at baseline.
Left knee in immobilizer. No complaints of discomfort at this time.
Plan is for discharge to [facility] on Saturday. In regards to her right shoulder, she will maintain the sling, but may remove this to work on gentle range of motion exercises of the shoulder, elbow, wrist, and hand, as well as when she is sedentary
to give her neck a break and to do daily hygiene/work activities. Blood pressures and blood draws may be obtained on her right upper extremity. She should remain nonweightbearing on the right upper extremity until follow-up in the office at [address] Santana. She will continue to utilize the knee immobilizer full-time and remain strict nonweightbearing to her left lower extremity until further follow-up. I will have her follow-up with Dr. Turpin in 4 weeks for repeat x-rays
of the left knee.
[2025-01-11 11:08] VITALS: BP 118/60; PULSE 78; O2SAT 99
--- NOTE | 2025-01-11 11:55 | W.PN.HOSP.TC ---
Today's Communication/Plan
-
Monitor vital signs
see plan
Hopeful discharge tomorrow to [facility]
monitor hgb
Assessment / Plan
Assessment / Plan
General: Well Developed, Well Nourished and No Apparent Distress
HEENT: NormoCephalic, Moist mucous membranes and Atraumatic
Respiratory: Clear
Cardiac: S1/S2 and Regular Rhythm; No Murmur or Rub
GI: Soft, Non Tender, Non Distended and Normal Bowel Sounds
Musculoskeletal: Edema, R wrist drop with digit extensor and flexor weakness. Numbness in distal digits.
Knee braced.
Neuro: Nonfocal/grossly intact
Dislocation of left total knee arthroplasty with complete occlusion of the popliteal artery with distal reconstitution/dissection
s/p Left BK Pop/AT/PT Thrombectomy
s/p Left Leg Above Knee Popliteal artery bypass to below knee popliteal artery bypass
s/p Ligation of Left Popliteal Vein
s/p Left Leg 4 compartment Fasciotomies
# Ambulatory dysfunction with mechanical fall
post Op acute hemorrhagic shock secondary to acute blood loss; started levophed, now off. Continue with neurovascular checks
Wound VAC placed to left lower extremity medial and lateral fasciotomy site by vascular. Reevaluated by vascular surgery. No surgical intervention at this time. Replace wound VAC with 7-day wound VAC. Discharge planing. Also started on
antibiotics; ID following given open fasciotomy sites with underlying prosthetic graft. Per infectious disease, prophylactic cephalexin 500mg po qid x 2 weeks through 01/22/25
-Continue aspirin, statin
s/p closed reduction right shoulder and left knee by ortho
NWB to RUE; nonweightbearing with knee immobilizer on left lower extremity per ortho
CT LE per ortho showed distal femur fracture. Patient to follow-up with orthopedics outpatient
Shoulder x-ray also with inferior glenoid fracture. Ortho following
Pt/OT per ortho
cw pain control
- Pelvic x-ray negative
On as needed midodrine
Anemia, likely acute blood loss from recent procedure
Continue to monitor
1 unit prbc 01/06; monitor. Hemoglobin now 8
Iron deficiency anemia, started IV iron, last day 01/10
Vitamin B12 deficiency
Replete
Thrombocytopenia
Resolved
Elevated LFTs
resolved
# Right shoulder anterior dislocation
- s/p closed reduction
Management per orthopedic
# Forehead laceration
- CT head shows no acute abnormality
History of right rotator cuff injury status post surgery in 2019
History of left rotator cuff injury managed conservatively
- Plan for shoulder replacement in the near future
Osteoarthritis
GERD
Hypercholesteremia
Migraine
Anxiety/depression
Full code
DVT prophylaxis�Lovenox Discussed with vascular
PT/OT recommending acute rehab. Discussed with caser in and appears [facility] has a bed on Saturday
Anticipated Discharge: Within 24 hours
Subjective/Interval History
-
Date of Service: January 11, 2025
denies pain
Objective Data
-
Labs:
Laboratory Results
01/11/25
07:18
WBC 5.2
Hgb 8.4 L
Hct 24.9 L
Plt Count 284
Sodium 138
Potassium 3.7
Chloride 109 H
Carbon Dioxide 27
BUN 8
Creatinine 0.5 L
Glucose 98
Calcium 8.5
Vital Signs:
Vital Signs
Temp Pulse Resp BP Pulse Ox
98.3 F 66 16 109/64 96
01/11/25 07:10 01/11/25 07:10 01/11/25 07:10 01/11/25 07:10 01/11/25 11:42
I&O
01/10/25 01/11/25 01/12/25
06:59 06:59 06:59
Intake Total 1030 / 1030 1070 / 1070
Balance 1030 / 1030 1070 / 1070
[2025-01-11 15:44] VITALS: BP 114/69
--- NOTE | 2025-01-11 16:10 | W.PN.SURGUPD ---
Surgical Update
Surgical Update
Brief Surgery update note:
Surgery called to remove her scalp lac sutures that were placed 1 week ago. scalp appears well healed.
5 nylon sutures removed intact. No issues
Ok to shower, do not scrub laceration, scab will fall off on it's own.
All questions answered, patient can follow-up with me as needed.
surgery will s/o call with Qs
[2025-01-11] MEDS: LOVENOX 40 MG SC (18:03)
[2025-01-11] MEDS: ROXICODONE 5 MG PO (18:17)
[2025-01-11] MEDS: AMBIEN 5 MG PO (21:00)
[2025-01-11 23:02] VITALS: BP 111/72
[2025-01-12] MEDS: ROXICODONE 5 MG PO ×2 (00:37→21:52)
[2025-01-12 07:04] LABS: Hematocrit 25.5 % (37.0-47.0); Hemoglobin 8.4 g/dL (12.0-16.0); Mean Corp Hgb Conc. 32.9 g/dL (33.0-37.0); Mean Corpuscular Volume 95.1 fL (81.0-99.0); Nucleated Red Blood Cells % 0 %; Platelet Count 306 10^3/uL (130-400); Red Cell Dist. Width 13.4 % (11.5-14.5)
[2025-01-12 07:25] VITALS: BP 115/66
[2025-01-12 09:00] VITALS: BP 115/66
[2025-01-12] MEDS: MIRALAX PO ×2 (09:01→20:10)
[2025-01-12] MEDS: VITAMIN B-12 1000 MCG PO (09:02)
[2025-01-12] MEDS: LEXAPRO 20 MG PO (09:02)
[2025-01-12] MEDS: CLARITIN 10 MG PO (09:02)
[2025-01-12] MEDS: LIPITOR 10 MG PO (09:02)
[2025-01-12] MEDS: LOW STRENGTH ASPIRIN 81 MG PO (09:02)
[2025-01-12] MEDS: KEFLEX 500 MG PO ×4 (09:02→21:45)
[2025-01-12] MEDS: VISBIOME 1 CAP PO (09:02)
[2025-01-12] MEDS: PEPCID 20 MG PO ×2 (09:03→20:10)
[2025-01-12] MEDS: TYLENOL 650 MG PO ×2 (09:03→16:10)
[2025-01-12 11:37] VITALS: BP 117/69; PULSE 79; O2SAT 97
--- NOTE | 2025-01-12 11:38 | CM ---
Spoke with RN who stated that patient has been medically cleared. Placed a call to Rosaura in admissions at [facility] who stated that today, she does not have a bed for patient however she will know more about potential availability after rounds. RN
updated.
Plan: Case management will continue to follow and assist with discharge planning. [facility] upon bed availability.
[2025-01-12 11:45] VITALS: BP 117/69; PULSE 79; O2SAT 98
--- NOTE | 2025-01-12 12:51 | W.PN.HOSP.TC ---
Today's Communication/Plan
-
Pending discharge to acute rehab.
Continue PT
Continue wound care.
Assessment / Plan
Assessment / Plan
General: Well Developed, Well Nourished and No Apparent Distress
HEENT: NormoCephalic, Moist mucous membranes and Atraumatic
Respiratory: Clear
Cardiac: S1/S2 and Regular Rhythm; No Murmur or Rub
GI: Soft, Non Tender, Non Distended and Normal Bowel Sounds
Musculoskeletal: Edema, R wrist drop with digit extensor and flexor weakness. Numbness in distal digits.
Knee braced.
Neuro: Nonfocal/grossly intact
Dislocation of left total knee arthroplasty with complete occlusion of the popliteal artery with distal reconstitution/dissection
s/p Left BK Pop/AT/PT Thrombectomy
s/p Left Leg Above Knee Popliteal artery bypass to below knee popliteal artery bypass
s/p Ligation of Left Popliteal Vein
s/p Left Leg 4 compartment Fasciotomies
# Ambulatory dysfunction with mechanical fall
post Op acute hemorrhagic shock secondary to acute blood loss; started levophed, now off. Continue with neurovascular checks
Wound VAC placed to left lower extremity medial and lateral fasciotomy site by vascular. Reevaluated by vascular surgery. No surgical intervention at this time. Replace wound VAC with 7-day wound VAC. Discharge planing. Also started on
antibiotics; ID following given open fasciotomy sites with underlying prosthetic graft. Per infectious disease, prophylactic cephalexin 500mg po qid x 2 weeks through 01/22/25
-Continue aspirin, statin
s/p closed reduction right shoulder and left knee by ortho
NWB to RUE; nonweightbearing with knee immobilizer on left lower extremity per ortho
CT LE per ortho showed distal femur fracture. Patient to follow-up with orthopedics outpatient
Shoulder x-ray also with inferior glenoid fracture. Ortho following
Pt/OT per ortho
cw pain control
- Pelvic x-ray negative
On as needed midodrine
Anemia, likely acute blood loss from recent procedure
Continue to monitor
1 unit prbc 01/06; monitor. Hemoglobin now 8
Iron deficiency anemia, started IV iron, last day 01/10
Vitamin B12 deficiency
Replete
Thrombocytopenia
Resolved
Elevated LFTs
resolved
# Right shoulder anterior dislocation
- s/p closed reduction
Management per orthopedic
# Forehead laceration
- CT head shows no acute abnormality
History of right rotator cuff injury status post surgery in 2019
History of left rotator cuff injury managed conservatively
- Plan for shoulder replacement in the near future
Osteoarthritis
GERD
Hypercholesteremia
Migraine
Anxiety/depression
Full code
DVT prophylaxis�Lovenox Discussed with vascular
PT/OT recommending acute rehab. Discussed with case management specialist and appears [facility] has a bed on Saturday
Anticipated Discharge: Within 24 hours
Subjective/Interval History
-
Date of Service: January 12, 2025
Objective Data
-
Labs:
Laboratory Results
01/12/25
06:38
WBC 6.7
Hgb 8.4 L
Hct 25.5 L
Plt Count 306
Vital Signs:
Vital Signs
Temp Pulse Resp BP Pulse Ox
98.2 F 76 16 115/66 97
01/12/25 09:00 01/12/25 09:00 01/12/25 09:00 01/12/25 09:00 01/12/25 09:00
I&O
01/11/25 01/12/25 01/13/25
06:59 06:59 06:59
Intake Total 1070 / 1070 720 / 720
Balance 1070 / 1070 720 / 720
[2025-01-12 15:40] VITALS: BP 118/75
--- NOTE | 2025-01-12 16:11 | WOUNDNOTE ---
L LATERAL LOWER LEG
--- NOTE | 2025-01-12 16:12 | WOUNDNOTE ---
L MEDIAL LOWER LEG
--- NOTE | 2025-01-12 16:12 | WOUNDNOTE ---
WON RN NOTE: L Leg dressing changed, fasciotomy sites with granulating tissue. Atif intact proximal and distal to fasciotomy sites. Wound vac one week dressing removed by nursing because it kept alarming and unable to get a good seal. Saline WTD
dressing applied by nursing yesterday. Upon removal dressing sticking and painful to remove, despite rinsing with saline. Confirmed with vascular Dr. Sandoval can hold off on resuming wound vac and apply adaptic then saline WTD dressing, gina wrap thigh
high. [place] covered with dry dressing. Knee immobilizer placed back on. Patient waiting for bed at [facility], possible discharge tomorrow. Wound vac machine placed on sink by door, nurse aware.
[2025-01-12] MEDS: LOVENOX 40 MG SC (17:55)
[2025-01-12] MEDS: AMBIEN 5 MG PO (22:57)
[2025-01-12 23:29] VITALS: BP 107/59
[2025-01-13] MEDS: TYLENOL 650 MG PO (06:35)
[2025-01-13 07:30] VITALS: BP 124/64
[2025-01-13] MEDS: KEFLEX 500 MG PO ×2 (08:07→12:09)
[2025-01-13] MEDS: VITAMIN B-12 1000 MCG PO (08:07)
[2025-01-13] MEDS: CLARITIN 10 MG PO (08:07)
[2025-01-13] MEDS: VISBIOME 1 CAP PO (08:07)
[2025-01-13] MEDS: ROXICODONE 5 MG PO ×3 (08:07→16:17)
[2025-01-13] MEDS: PEPCID 20 MG PO (08:08)
[2025-01-13] MEDS: LIPITOR 10 MG PO (08:08)
[2025-01-13] MEDS: MIRALAX PO (08:08)
[2025-01-13] MEDS: LOW STRENGTH ASPIRIN 81 MG PO (08:08)
[2025-01-13] MEDS: LEXAPRO 20 MG PO (08:09)
--- NOTE | 2025-01-13 10:16 | W.DS.TRANS ---
DC Summary - [employer]
-
Discharge Instructions:
Discharge Diagnosis/Procedures Dislocation of left total knee arthroplasty with
complete occlusion of the popliteal artery with
distal reconstitution/dissection
s/p Left BK Pop/AT/PT Thrombectomy
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
to below knee popliteal artery bypass
s/p Ligation of Left Popliteal Vein
s/p Left Leg 4 compartment Fasciotomies
Anemia
Vit b12 deficiency
Diet As tolerated
Activity Other activity
Additional Activity NWB to RUE; nonweightbearing with knee
immobilizer on left lower extremity
Driving Restrictions Not until seen by your Dr
Bathing Restrictions OK to Shower
Instructions:
Stand-Alone Forms: Vascular Surg Discharge Instr
Changes to Home Medications: No
Discharge Medications:
DC Medications w/original date entered in [employer]
atorvastatin 10 mg tablet 10 mg PO DAILY High Cholesterol 10/12/14
loratadine 10 mg tablet 10 mg PO DAILY Allergies 10/12/14
famotidine 20 mg tablet 20 mg PO BID Gastrointestinal Issue 12/17/18
acetaminophen 325 mg tablet 650 mg PO QID PRN L shoulder pain 01/03/25
docusate sodium 100 mg capsule 100 mg PO BID PRN constipation 01/03/25
escitalopram oxalate 10 mg tablet (Lexapro) 20 mg PO DAILY Mental Health/Anxiety 01/03/25
semaglutide 1.15 mg SC WEEKLY Diabetes 01/03/25
Lactobac/Bifidobac [Visbiome] 1 cap PO DAILY #30 caps 01/12/25
aspirin 81 mg chewable tablet 81 mg PO DAILY #30 tabs 01/12/25
cephalexin 500 mg capsule 500 mg PO QID #40 caps 01/12/25
gabapentin 100 mg capsule 100 mg PO TID PRN Neuropathic Pain #30 caps 01/12/25
midodrine 5 mg tablet 5 mg PO TID@0800,1300,1800 PRN MAP < 65 mm #30 tabs 01/12/25
oxycodone 5 mg tablet 5 mg PO Q4HPRN PRN Moderate pain #20 tabs 01/12/25
polyethylene glycol 3350 17 gram oral powder packet 17 g PO BID #30 ea 01/12/25
zolpidem 10 mg tablet (Ambien) 5 mg (1/2 x 10 mg) PO HS PRN insomnia #0 tabs 01/12/25
Home Medication Changes
Pending Results: No
--- NOTE | 2025-01-13 11:32 | CM ---
CM following re: discharge planning.
Reviewed pt's chart, met with pt.
Discharge order noted. Pt is aware, expressed her agreement with discharge. IMM reviewed, placed on chart, pt has a copy.
CM spoke to [facility] and she confirmed that pt is accepted for admission today and after 2:00 p.m discharge time requested.
[place] [facility] nursing report: [phone]
Discharge instructions fax: [phone]
D/C plan: [place] [facility]
[2025-01-13 15:00] VITALS: BP 127/67
== END 2025-01-13 17:30 | DRG 252 ==
LOC: 2 SOUTH 15:28
PROVIDERS: Internal Medicine; Nurse Practitioner Family; Nurse Practitioner Primary Care; ADMITTING PHYSICIAN Hospitalist; ATTENDING PHYSICIAN Internal Medicine; CONSULT PHYSICIAN Internal Medicine Infectious Disease; CONSULT PHYSICIAN Orthopaedic Surgery Hand Surgery; CONSULT PHYSICIAN Surgery; EMERGENCY PHYSICIAN Emergency Medicine; FAMILY PHYSICIAN Physician Assistant; OTHER PHYSICIAN Internal Medicine; OTHER PHYSICIAN Surgery Vascular Surgery
PROC: 0SCD0ZZ Extirpation of Matter from Left Knee Joint, Open Approach (ICD-10-PCS; 2025-01-03)
PROC: 0SWDXJZ Revision of Synthetic Substitute in Left Knee Joint, External Approach (ICD-10-PCS; 2025-01-03)
PROC: B41G1ZZ Fluoroscopy of Left Lower Extremity Arteries using Low Osmolar Contrast (ICD-10-PCS; 2025-01-03)
PROC: 0KNT0ZZ Release Left Lower Leg Muscle, Open Approach (ICD-10-PCS; 2025-01-03)
PROC: 04CN0ZZ Extirpation of Matter from Left Popliteal Artery, Open Approach (ICD-10-PCS; 2025-01-03)
PROC: 041N0JQ Bypass Left Popliteal Artery to Lower Extremity Artery with Synthetic Substitute, Open Approach (ICD-10-PCS; 2025-01-03)
PROC: 0RSJXZZ Reposition Right Shoulder Joint, External Approach (ICD-10-PCS; 2025-01-03)
PROC: 30233N1 Transfusion of Nonautologous Red Blood Cells into Peripheral Vein, Percutaneous Approach (ICD-10-PCS; 2025-01-03)
PROC: 30233K1 Transfusion of Nonautologous Frozen Plasma into Peripheral Vein, Percutaneous Approach (ICD-10-PCS; 2025-01-03)
PROC: 0HQ0XZZ Repair Scalp Skin, External Approach (ICD-10-PCS; 2025-01-04)
PROC: F08G5YZ Wound Management Treatment of Integumentary System - Lower Back / Lower Extremity using Other Equipment (ICD-10-PCS; 2025-01-05)
DX: I77.77 Dissection of artery of lower extremity (principal); T81.19XA Other postprocedural shock, initial encounter; T84.023A Instability of internal left knee prosthesis, initial encounter; S72.402A Unspecified fracture of lower end of left femur, initial encounter for closed fracture; D62 Acute posthemorrhagic anemia; M97.12XA Periprosthetic fracture around internal prosthetic left knee joint, initial encounter; E78.00 Pure hypercholesterolemia, unspecified; G43.909 Migraine, unspecified, not intractable, without status migrainosus; K21.9 Gastro-esophageal reflux disease without esophagitis; F32.A Depression, unspecified; F41.9 Anxiety disorder, unspecified; I95.81 Postprocedural hypotension; J30.2 Other seasonal allergic rhinitis; D50.9 Iron deficiency anemia, unspecified; D69.6 Thrombocytopenia, unspecified; E53.8 Deficiency of other specified B group vitamins; R20.0 Anesthesia of skin; E11.9 Type 2 diabetes mellitus without complications; Y79.2 Prosthetic and other implants, materials and accessory orthopedic devices associated with adverse incidents; Y83.1 Surgical operation with implant of artificial internal device as the cause of abnormal reaction of the patient, or of later complication, without mention of misadventure at the time of the procedure; S84.12XA Injury of peroneal nerve at lower leg level, left leg, initial encounter; S54.21XA Injury of radial nerve at forearm level, right arm, initial encounter; S83.125A Posterior dislocation of proximal end of tibia, left knee, initial encounter; S54.01XA Injury of ulnar nerve at forearm level, right arm, initial encounter; S43.014A Anterior dislocation of right humerus, initial encounter; S01.81XA Laceration without foreign body of other part of head, initial encounter; W01.0XXA Fall on same level from slipping, tripping and stumbling without subsequent striking against object, initial encounter; Y93.01 Activity, walking, marching and hiking; Y92.481 Parking lot as the place of occurrence of the external cause; Z96.651 Presence of right artificial knee joint; Z88.1 Allergy status to other antibiotic agents; Z88.0 Allergy status to penicillin; Z79.85 Long-term (current) use of injectable non-insulin antidiabetic drugs; X50.1XXA Overexertion from prolonged static or awkward postures, initial encounter
CPT/HCPCS: 27602; 34203; 37799; 70450; 71045; 72170; 73020; 73030; 73560; 73564; 73700; 73706; 75710; 80048; 80053; 82607; 82728; 82746; 82962; 83540; 83550; 83735; 84100; 85014; 85018; 85025; 85027; 85610; 85730; 86850; 86900; 86901; 86920; 93005; 96374; 96375; 96376; 97116; 97163; 97167; 97530; 97535; 99291; C1757; C1760; C1894; C2623; J2916; P9016; P9059; Q9967

== ENCOUNTER → 2025-02-05 15:10 | Outpatient (REF) | payer MEDICARE, BC, SELFPAY ==
[2025-02-05 16:38] LABS: ALT (SGPT) 48 U/L (0-35); AST (SGOT) 41 U/L (14-36); Albumin 4.0 g/dl (3.5-5.0); Alkaline Phosphatase 104 U/L (38-126); Blood Urea Nitrogen 13 mg/dl (7-17); Calcium 9.8 mg/dl (8.4-10.2); Carbon Dioxide 25 mmol/L (22-30); Chloride 106 mmol/L (98-107); Glucose 88 mg/dl (70-99); Potassium 4.9 mmol/L (3.5-5.1); Sodium 137 mmol/L (135-145); Total Protein 6.1 g/dl (6.3-8.2); eGFR > 60.00
[2025-02-05 16:39] LABS: Hematocrit 33.4 % (37.0-47.0); Hemoglobin 10.6 g/dL (12.0-16.0); Mean Corp Hgb Conc. 31.7 g/dL (33.0-37.0); Mean Corpuscular Volume 92.5 fL (81.0-99.0); Platelet Count 281 10^3/uL (130-400); Red Cell Dist. Width 13.6 % (11.5-14.5)
== END ==
LOC: CLAB 15:10
PROVIDERS: ATTENDING PHYSICIAN Physician Assistant
DX: I74.3 Embolism and thrombosis of arteries of the lower extremities (principal)
CPT/HCPCS: 80053; 85027

== ENCOUNTER → 2025-02-15 14:39 | Outpatient (REF) | payer MEDICARE, BC, SELFPAY | LOC: RAD 14:39 | PROVIDERS: ATTENDING PHYSICIAN Registered Nurse; FAMILY PHYSICIAN Physician Assistant | DX: I77.77 Dissection of artery of lower extremity (principal); M79.89 Other specified soft tissue disorders; R60.0 Localized edema | CPT/HCPCS: 93971 ==

== ENCOUNTER → 2025-02-19 15:20 | Outpatient (REF) | payer MEDICARE, BC, SELFPAY | LOC: RAD 15:20 | PROVIDERS: ATTENDING PHYSICIAN Registered Nurse; FAMILY PHYSICIAN Physician Assistant | DX: I77.77 Dissection of artery of lower extremity (principal); Z95.828 Presence of other vascular implants and grafts | CPT/HCPCS: 93922 ==

== ENCOUNTER → 2025-02-23 13:02 | Outpatient (REF) | payer MEDICARE, BC, SELFPAY | LOC: RAD 13:02 | PROVIDERS: ATTENDING PHYSICIAN Registered Nurse; FAMILY PHYSICIAN Physician Assistant | DX: I77.77 Dissection of artery of lower extremity (principal); Z95.828 Presence of other vascular implants and grafts | CPT/HCPCS: 73706; Q9967 ==

== ENCOUNTER 2025-04-09 06:57 | Outpatient (RCR) | payer MEDICARE, BC, SELFPAY | END 2025-04-09 23:59 | disposition home or self-care (01) | LOC: RPT 06:57 | PROVIDERS: ATTENDING PHYSICIAN Physician Assistant Surgical; FAMILY PHYSICIAN Physician Assistant | DX: S72.402P Unspecified fracture of lower end of left femur, subsequent encounter for closed fracture with malunion (principal); S83.105D Unspecified dislocation of left knee, subsequent encounter; S84.80 Injury of other nerves at lower leg level; T79.A22D Traumatic compartment syndrome of left lower extremity, subsequent encounter; Z73.6 Limitation of activities due to disability; R26.89 Other abnormalities of gait and mobility; R20.0 Anesthesia of skin; M62.81 Muscle weakness (generalized); W19.XXXD Unspecified fall, subsequent encounter | CPT/HCPCS: 97110; 97112; 97162 ==

== ENCOUNTER 2025-05-11 07:17 | Outpatient (RCR) | payer MEDICARE, BC, SELFPAY | END 2025-05-11 23:59 | disposition home or self-care (01) | LOC: RPT 07:17 | PROVIDERS: ATTENDING PHYSICIAN Physician Assistant Surgical; FAMILY PHYSICIAN Physician Assistant | DX: Z47.89 Encounter for other orthopedic aftercare (principal); S72.402P Unspecified fracture of lower end of left femur, subsequent encounter for closed fracture with malunion; S83.105D Unspecified dislocation of left knee, subsequent encounter; S84.80 Injury of other nerves at lower leg level; T79.A22D Traumatic compartment syndrome of left lower extremity, subsequent encounter; Z73.6 Limitation of activities due to disability; R26.89 Other abnormalities of gait and mobility; R20.0 Anesthesia of skin; M62.81 Muscle weakness (generalized); W19.XXXD Unspecified fall, subsequent encounter | CPT/HCPCS: 97110; 97112 ==